=== PATIENT | female | born 1980 | race Caucasian/White ===

== ENCOUNTER 2017-05-06 12:20 | Inpatient (IN) | payer OTHER, SELFPAY ==
[2017-05-06 12:01] VITALS: BMI 30.7
[2017-05-06] MEDS: Lactated Ringers 1,000 ML 50 ML IV ×4 (12:54→22:57)
[2017-05-06 12:59] LABS: Hematocrit 40.5 % (37-47); Hemoglobin 13.8 g/dl (12.0-15.0); Mean Corp Hgb Conc 34.1 g/gl (32-36); Mean Corpuscular Hgb 30.9 pg (27.0-32.0); Mean Corpuscular Volume 90.6 fL (81-99); Mean Platelet Vol. 10.1 fl (6.2-12.0); Platelet Count 273 K/mm3 (150-450); RBC Distribution Width CV 13.2 % (11.6-14.6); RBC Distribution Width SD 43.4 fl (35.1-43.9); Red Blood Count 4.47 M/mm3 (4.2-5.4); Scan Indicated on CBC? Y/N NO; White Blood Count 16.6 K/mm3 (4.4-11.0)
[2017-05-06] MEDS: Nalbuphine 10 MG/ML Ampul IV ×2 (14:47→18:06)
--- NOTE | 2017-05-06 15:07 | PCM.HP.STD ---
Problem List (1) Active labor at term Status: Acute (2) Advanced maternal age (AMA) in Status: Acute Comment: negative NIPT screening (3) Positive GBS test Status: Acute Comment: clindamycin sensitive (4) Large for gestational age fetus affecting mother, antepartum, third trimester, single gestation Status: Chronic Comment: normal HgA1c History of Present Illness Date of Admission: 05/06/17 Chief Complaint: ial The patient is a 37 year old F @ 40 weeks presents IAL. she has had an uncomplicated labor doing well no complaints. Past Medical History Past Medical History (Chronic Problems): Chronic Problems (Last Reviewed 05/05/17 @ 08:20 by Yael Scott) Large for gestational age fetus affecting mother, antepartum, third trimester, single gestation (Chronic) normal HgA1c Allergies penicillin G Allergy (Mild, Verified 05/06/17 12:02) Unknown Home Medications: Ambulatory Orders Medication Instructions Recorded ceramides 1,3,6-11 topical cream 1 applic TOPICAL DAILY 03/28/17 1 tab PO QDAY 03/28/17 vitamin,calcium,[id number] acid tablet Surgical History: - - pedunculated myomectomy [employer] History: - - myomectomy Lives: Spouse/ Significant Other Smoking Status: Never smoker Tobacco Use: Non-smoker Alcohol: None Drugs: None Review of Systems Constitutional: Denies: Chills, Fever, Weight Change HEENT: Denies: Head Aches, Sinus Congestion, Sinus Drainage Cardiovascular: Denies: Chest Pain, Palpitations Respiratory: Denies: Cough, Shortness of breath at rest, Sputum production Gastrointestinal: Reports: Abdominal Pain. Denies: Nausea, Vomiting Genitourinary: Denies: Dysuria Musculoskeletal: Denies: Joint Pain, Joint Tenderness Skin: Denies: Rash, Wounds Neurological: Denies: Numbness, Tingling, Focal weakness Psychiatric: Denies: Anxiety, Depression, Homicidal Ideations, Suicidal Ideations Hematologic/ Lymphatic: Denies: Easy Bruising, Easy Bleeding VTE Information - Inpt Only VTE Present on Admission: No Patient Problems: Active and Suspected Problems (Last Reviewed 05/05/17 @ 08:20 by Yael Scott) Active labor at term (Acute) - Physical Exam General: Alert, Oriented x3 HEENT: EOMI Oral: Moist Mucosa Lungs: Normal air movement Cardiovascular: Regular rate Abdomen: Soft, Gravid, Appropriate for Gestational Age Skin: No rashes Weight: 190 lb 0.615 oz Body Mass Index (BMI) 30.7 Laboratory Tests Past 24 Hrs 05/06/17 05/06/17 12:40 12:40 WBC 16.6 H RBC 4.47 Hgb 13.8 Hct 40.5 MCV 90.6 MCH 30.9 MCHC 34.1 RDW 13.2 RDW Differential 43.4 Plt Count 273 MPV 10.1 Blood Type O POSITIVE Antibody Screen NEGATIVE Assessment/Plan Active and Suspected Problems (Last Reviewed 05/05/17 @ 08:20 by Yael Scott) Active labor at term (Acute) ial expectant manamgent, support and change positions, iv nubain and nitrous used in labor. gbs positive give clindamycin. ama and previous myomectomy but was pedunculated.
--- NOTE | 2017-05-06 15:17 | HP.PCM_ITS ---
Problem List (1) Active labor at term Status: Acute (2) Advanced maternal age (AMA) in Status: Acute Comment: negative NIPT screening (3) Positive GBS test Status: Acute Comment: clindamycin sensitive (4) Large for gestational age fetus affecting mother, antepartum, third trimester, single gestation Status: Chronic Comment: normal HgA1c History of Present Illness Date of Admission: 05/06/17 Chief Complaint: ial The patient is a 37 year old F @ 40 weeks presents IAL. she has had an uncomplicated labor doing well no complaints. Past Medical History Past Medical History (Chronic Problems): Chronic Problems (Last Reviewed 05/05/17 @ 08:20 by Yael Scott) Large for gestational age fetus affecting mother, antepartum, third trimester, single gestation (Chronic) normal HgA1c Allergies penicillin G Allergy (Mild, Verified 05/06/17 12:02) Unknown Home Medications: Ambulatory Orders Medication Instructions Recorded ceramides 1,3,6-11 topical cream 1 applic TOPICAL DAILY 03/28/17 1 tab PO QDAY 03/28/17 vitamin,calcium,qfvwtdxx-jrxt-totwf acid tablet Surgical History: - - pedunculated myomectomy [employer]ER History: - - myomectomy Lives: Spouse/ Significant Other Smoking Status: Never smoker Tobacco Use: Non-smoker Alcohol: None Drugs: None Review of Systems Constitutional: Denies: Chills, Fever, Weight Change HEENT: Denies: Head Aches, Sinus Congestion, Sinus Drainage Cardiovascular: Denies: Chest Pain, Palpitations Respiratory: Denies: Cough, Shortness of breath at rest, Sputum production Gastrointestinal: Reports: Abdominal Pain. Denies: Nausea, Vomiting Genitourinary: Denies: Dysuria Musculoskeletal: Denies: Joint Pain, Joint Tenderness Skin: Denies: Rash, Wounds Neurological: Denies: Numbness, Tingling, Focal weakness Psychiatric: Denies: Anxiety, Depression, Homicidal Ideations, Suicidal Ideations Hematologic/ Lymphatic: Denies: Easy Bruising, Easy Bleeding VTE Information - Inpt Only VTE Present on Admission: No Patient Problems: Active and Suspected Problems (Last Reviewed 05/05/17 @ 08:20 by Yael Scott) Active labor at term (Acute) - Physical Exam General: Alert, Oriented x3 HEENT: EOMI Oral: Moist Mucosa Lungs: Normal air movement Cardiovascular: Regular rate Abdomen: Soft, Gravid, Appropriate for Gestational Age Skin: No rashes Weight: 190 lb 0.615 oz Body Mass Index (BMI) 30.7 Laboratory Tests Past 24 Hrs 05/06/17 05/06/17 12:40 12:40 WBC 16.6 H RBC 4.47 Hgb 13.8 Hct 40.5 MCV 90.6 MCH 30.9 MCHC 34.1 RDW 13.2 RDW Differential 43.4 Plt Count 273 MPV 10.1 Blood Type O POSITIVE Antibody Screen NEGATIVE Assessment/Plan Active and Suspected Problems (Last Reviewed 05/05/17 @ 08:20 by Yael Scott) Active labor at term (Acute) ial expectant manamgent, support and change positions, iv nubain and nitrous used in labor. gbs positive give clindamycin. ama and previous myomectomy but was pedunculated.
[2017-05-06] MEDS: Clindamycin 900 MG/50 ML BAG 75 MG IV ×2 (15:34→22:37)
[2017-05-06] MEDS: Ondansetron 4 MG/2 ML Vial IV (18:10)
[2017-05-06] MEDS: 0.9% Saline Lock 10 ML Syringe IV (18:10)
[2017-05-06] MEDS: Oxytocin 30 units/NS 500 ml 30 UNITS/500 ML IV.SOLN IV (22:46)
[2017-05-07] VITALS (26 sets, daily range): BP systolic 57–132; BP diastolic 20–107; PULSE 106–137; RESP 15–28; TEMP 36.7–38.3; O2SAT 93–100
[2017-05-07] MEDS: Lactated Ringers 1,000 ML 50 ML IV ×2 (03:41→05:54)
--- NOTE | 2017-05-07 05:33 | PCM.PN.BLA ---
Progress Note pitocin augmentation of labor for minimal change- complete and pushing for an hour, overall reassuring FHT, occasional isolated variable but 130s moderate variability reactive. toco q2-4 minutes. patient painful in llq so redosed with epidural
[2017-05-07] MEDS: Clindamycin 900 MG/50 ML BAG 75 MG IV ×3 (07:18→21:48)
--- NOTE | 2017-05-07 07:53 | PCM.PN.BLA ---
Progress Note patient complete since 324 am pushing since 340 for 4 hours and still +1 station with severe caput and severe bilateral labial edema. s/p epidural redosing x 2 and position changes. recommend primary for arrest of descent. will take to back now, catyegory I tracing reassuring. isolated variable. patient consented for csection and agrees.
[2017-05-07] MEDS: Sodium Citrate/Citric Acid 30 ML UDC PO (07:56)
--- NOTE | 2017-05-07 07:58 | PCM.OPRPT ---
Problem List (1) Active labor at term Status: Acute (2) Advanced maternal age (AMA) in Status: Acute Comment: negative NIPT screening (3) Positive GBS test Status: Acute Comment: clindamycin sensitive (4) Large for gestational age fetus affecting mother, antepartum, third trimester, single gestation Status: Chronic Comment: normal HgA1c (5) Arrest of descent, delivered, current hospitalization Status: Acute Report of Operation Date of Procedure: 05/07/17 Pre-Operative Diagnosis: LGA, AMA, arrest of descent pushing for four hours +1 station, h/o laparoscopic serosal myomectomy Post-Operative Diagnosis: Same plus CPD Surgery/Procedure Performed:: primary low transverse csection Type of Anesthesia:: Epidural Special Medications: Disha Specimen's removed: Female in vertex presentation 8 lbs. 13 oz. Drains: Almaraz Estimated Blood Loss (mL): 1100 cc Fluids Replaced: Crystalloid Description of Procedure: Patient presented in active labor at 45 cm dilation and proceeded to 7 cm spontaneously developed arrest of labor and therefore was augmented with Pitocin and underwent epidural for anesthesia. Patient proceeded to complete dilation and began pushing. Patient pushed for 4 hours with minimal descent past 1-2+. Patient was then consented for a primary low transverse . Patient taken to the back and epidural anesthesia was not found to be adequate and therefore patient underwent general anesthesia.The patient was placed in the dorsal supine position with leftward tilt. Patient was prepped and draped in the normal sterile fashion. Pfannenstiel skin incision was made with the scalpel and carried through to the underlying layer of fascia with the scalpel. Fascia was nicked in the midline and the incision extended laterally. The rectus bellies were dissected off superiorly and inferiorly with out complication both sharply and bluntly. The peritoneum was entered digitally. Significant uterine serosal swelling and perivesical swelling was noted. the incision was stretched and a low transverse uterine incision was made with the scalpel. The infant's head was delivered atraumatically followed by the anterior and posterior shoulders without complication the rest of the infant delivered. The cord was clamped and cut and the infant was handed off to awaiting nurse. The placenta was delivered spontaneously immediately following and was noted to be intact and have a three-vessel cord. The uterus was exteriorized cleared of all clots and debris, and the incision was closed in a double layer closure using #1 Monocryl. The uterus was returned to the maternal abdomen and gutters were cleared of all clots and debris. The ovaries and fallopian tubes were noted to be within normal limits. Minimal serosal bleeding was noted on the right side of the incision which was remedied with application of Disha. The left upper part of the uterine incision was noted to have a small hematoma tracking under the serosa which was watched and noted to be stable. The peritoneum was closed with 3-0 Monocryl in a running fashion. Fascia was closed with 0 PDS in a running fashion. Subcutaneous tissue was copiously irrigated and the skin was closed with 3-0 Monocryl in a subcuticular fashion. Steri-Strips and Mepilex dressing were applied without complication. Patient was taken to recovery in stable condition. - Complications None
[2017-05-07] MEDS: Oxytocin 30 units/NS 500 ml 30 UNITS/500 ML IV.SOLN 167 UNITS IV (08:30)
[2017-05-07] MEDS: Methylergonovine 0.2 MG/ML Ampul IM (10:20)
[2017-05-07 10:22] LABS: Absolute Lymphocyte Count 1.44 X10^3/ul (0.83-4.51); Absolute Neutrophil Count 22.2 X10^3/uL (2.0-7.7); Basophil# 0.01 X10^3/uL; Eosinophil# 0.01 X10^3/uL; Hematocrit 23.5 % (37-47); Lymphocyte # 1.44 X10^3/ul (4.0); Lymphocyte % 5.8 % (19-41); Mean Corpuscular Hgb 31.4 pg (27.0-32.0); Mean Corpuscular Volume 92.2 fL (81-99); Mean Platelet Vol. 10.2 fl (6.2-12.0); Monocyte# 1.02 X10^3/uL; Monocyte% 4.1 % (0-10); Neutrophil # 22.22 X10^3/uL (2.7-7.7); Neutrophil % 89.5 % (47-70); Platelet Count 235 K/mm3 (150-450); RBC Distribution Width CV 12.9 % (11.6-14.6); RBC Distribution Width SD 41.8 fl (35.1-43.9); Red Blood Count 2.55 M/mm3 (4.2-5.4); White Blood Count 24.8 K/mm3 (4.4-11.0)
[2017-05-07 10:24] LABS: Differential Indicated SCAN CRITERIA MET; POSITIVE COUNT NO; POSITIVE DIFFERENTIAL YES; POSITIVE MORPHOLOGY NO
[2017-05-07] MEDS: Carboprost Tromethamine 250 MCG/ML Ampul IM ×4 (10:28→11:29)
[2017-05-07 10:29] LABS: International Normalized Ratio 1.1; Prothrombin Time (Protime)PT. 14.1 SECONDS (11.7-14.9)
[2017-05-07] MEDS: miSOPROStol 200 MCG Tablet 1000 MCG RECTAL (10:31)
[2017-05-07] MEDS: Lactated Ringers 1,000 ML 999 ML IV ×2 (10:36→20:54)
[2017-05-07 11:18] LABS: Fibrinogen 375 mg/dl (203-444)
[2017-05-07 11:40] LABS: Absolute Neutrophil Count 16.6 X10^3/uL (2.0-7.7); Basophil# 0.01 X10^3/uL; Eosinophil# 0.01 X10^3/uL; Hematocrit 26.7 % (37-47); Hemoglobin 8.9 g/dl (12.0-15.0); Lymphocyte % 10.1 % (19-41); Mean Corp Hgb Conc 33.3 g/gl (32-36); Mean Corpuscular Hgb 31.3 pg (27.0-32.0); Mean Platelet Vol. 9.7 fl (6.2-12.0); Monocyte% 9.1 % (0-10); Neutrophil # 16.63 X10^3/uL (2.7-7.7); Neutrophil % 79.9 % (47-70); Platelet Count 136 K/mm3 (150-450); RBC Distribution Width CV 14.2 % (11.6-14.6); RBC Distribution Width SD 48.6 fl (35.1-43.9); Red Blood Count 2.84 M/mm3 (4.2-5.4); White Blood Count 20.8 K/mm3 (4.4-11.0)
[2017-05-07 11:42] LABS: Differential Indicated SCAN CRITERIA MET; POSITIVE COUNT NO; POSITIVE DIFFERENTIAL YES; POSITIVE MORPHOLOGY YES
[2017-05-07 11:47] LABS: International Normalized Ratio 1.3; Prothrombin Time (Protime)PT. 15.5 SECONDS (11.7-14.9)
[2017-05-07 11:48] LABS: Fibrinogen 250 mg/dl (203-444); Partial Thromboplast Time 31.3 Seconds (24.1-36.2)
--- NOTE | 2017-05-07 13:05 | NURSING ---
During patient recovery at 1000 BP was 57/20. Fundus 3/U, to the right and firm. Lochia scant. Patient groggy but oriented. Lowered HOB. Called for additional staff. Charge nurse, Dr Davison and anesthesia called to evaluate. Pulse ox 98%. 1002 BP 51/24, 1008-Yesenia Floyd CRNA at bedside, LR rate increased to 999 1010-Second IV inserted, Nasal cannula applied at 5L 1011- BP 72/37. Hemorrhage cart, ultrasound, and additional staff in room. Andi Kimbrough RN (charge), Carolyn Mckeon RN, Ariana Burk, Tamra Van, Sheila Norris and Chucho Moreno at bedside. 1012-Dr Davison u/s performed and found clots in uterus. 1013-BP 89/41 1015-BP 82/35. pulse 121 1016-Dr Davison performed vaginal exam, large amount of clots expressed manually. Verbal order from Dr Davison for type and cross for 2 units of blood 1020-methergine given IM in right leg per Tamra Van 1021-BP 94/35, Dr Davison continued removing clots manually and with Banjo. 1028-Dr Davison u/s and saw clots were removed, Hemabate given 1031-cytotec 1000mcg given rectally. Pads weighed 1682 grams. Blood loss noted 1038-new bag of LR hung, running in left IV site. Running at 999cc/hr. Patient to be transferred to OR. 1040-Entered OR, Dr Davison present at bedside. Additional staff continued in OR as listed above. 1045-Hemabate given 1046-Hespan given per anesthesia Liv Floyd CRNA. Infusing into right IV site. 1049-vaginal exam per Dr Davison, more clots expressed, bleeding continued 1050-Bakri balloon placed-420cc of saline inserted in balloon 1059-[employer] called, Anesthesiologist called to attend, Dr Hernandez called to assist for possible hysterectomy 1102-Dr Dubon and Dr Hernandez at beside 1104-1st unit of blood started by Dr Dubon via rapid infuser. Done at 1113, supervisor picking crew called surgery staff in for possible hysterectomy 1110-Patient intubated per Dr Dubon, general anesthesia given 1112-Hemabate IM given per Andi Clancy 1114-2nd unit of blood started per Dr Dubon via rapid infuser and done at 1123 1120-5units of pitocin in LR given via anesthesia 1129-Hemabate IM given 1131-repeat labs drawn by Sheila Norris RN, Dr Davison made decision to transfer patient to ICU. Pads from OR weighed 696 grams. Total blood loss 3478cc. 1144-Hgb 8.9, Dr Davison aware 1200-Dr Davison ordered 3rd unit of blood 1220-report called to ICU by Sheila Norris RN 1225-BP 110/70 1226-Out of the OR to ICU
--- NOTE | 2017-05-07 13:24 | PN.OBGYN_ITS ---
Patient Problems: Active and Suspected Problems (Last Updated 05/07/17 @ 05:33 by Carleen Davison MD) Arrest of descent, delivered, current hospitalization (Acute) Anemia due to acute blood loss (Acute) hemorrhage (Acute) atony of uterus with hemorrhage (Acute) Postcesarean section (Acute) Subjective: Called to patient's bedside due to hypotension and tachycardia and increased fundal height. At time of evaluation minimal vaginal bleeding was noted, bedside ultrasound was performed fundal height was noted to be 25-26 cm, bedside ultrasound showed a 6 cm blood clot present inside the uterus and vaginal exam was performed and large amounts of blood clot were noted to be vaginal and intrauterine which were causing uterine atony and increased fundal height. Clots were evacuated and fundal massage was performed but significant blood loss was apparent and therefore labs were drawn, units of blood were requested for transfusion and patient was then taken to the back after not being able to adequately evacuate clots at the bedside due to comfort and noted increased bleeding. Due to discomfort patient was put under general anesthesia for evaluation and a bakri balloon was placed. patient stable and transferred to icu - Physical Exam General: Alert, Oriented x3 Oral: Dry Mucosa Cardiovascular: Tachycardic Abdomen: - - appropriate TTP, FH 22cm Vital Signs Temp Pulse Resp BP Pulse Ox 100.5 F H 133 H 28 H 113/57 L 100 05/07/17 12:37 05/07/17 12:37 05/07/17 12:37 05/07/17 12:37 05/07/17 12:37 Oxygen Flow Rate 2 Oxygen Delivery Method Nasal Cannula Weight: 190 lb 0.615 oz Body Mass Index (BMI) 30.7 Intake and Output for Last 24 Hours 05/05/17 05/06/17 05/07/17 23:59 23:59 23:59 Intake Total 1724 / 1724 4550 / 4550 Output Total 200 / 200 400 / 400 Balance 1524 / 1524 4150 / 4150 Laboratory Tests Past 24 Hrs 05/06/17 05/06/17 05/07/17 12:40 12:40 10:10 WBC 24.8 H RBC 2.55 L Hgb 8.0 L Hct 23.5 L MCV 92.2 MCH 31.4 MCHC 34.0 RDW 12.9 RDW Differential 41.8 Plt Count 235 MPV 10.2 Immature Gran % (Auto) 0.600 Neut % (Auto) 89.5 H Lymph % (Auto) 5.8 L Vermillion % (Auto) 4.1 Eos % (Auto) 0.0 Baso % (Auto) 0.0 Absolute Neuts (auto) 22.2 H Absolute Lymphs (auto) 1.44 Total Counted Not Reportable Diff Path Review PT INR APTT Fibrinogen Blood Type O POSITIVE Antibody Screen NEGATIVE Crossmatch See Detail 05/07/17 05/07/17 05/07/17 10:10 11:31 11:31 WBC 20.8 H RBC 2.84 L Hgb 8.9 L Hct 26.7 L MCV 94.0 MCH 31.3 MCHC 33.3 RDW 14.2 RDW Differential 48.6 H Plt Count 136 L MPV 9.7 Immature Gran % (Auto) 0.900 Neut % (Auto) 79.9 H Lymph % (Auto) 10.1 L Vermillion % (Auto) 9.1 Eos % (Auto) 0.0 Baso % (Auto) 0.0 Absolute Neuts (auto) 16.6 H Absolute Lymphs (auto) 2.10 Total Counted Not Reportable Diff Path Review May foll PT 14.1 15.5 H INR 1.1 1.3 APTT 29.0 31.3 Fibrinogen 375 250 Blood Type Antibody Screen Crossmatch Assessment/Plan Active and Suspected Problems (Last Updated 05/07/17 @ 05:33 by Carleen Davison MD) Arrest of descent, delivered, current hospitalization (Acute) Anemia due to acute blood loss (Acute) hemorrhage (Acute) atony of uterus with hemorrhage (Acute) Postcesarean section (Acute) patient underwent pelvic exam under anesthesia and management of PPH due to atony, s/p 2 units PRBCs now on 3rd unit, monitor in ICU. discussed with ICU attending. critical care monitoring for time being. Tachycardia at present, additional unit on hold for transfusion PRN, check cbc and coag panel 2 hours after transfusion bakri balloon in place- to remain in place 24 hours, continue clindamycin while in place, already s/p one dose gentamicin post care planning - will pump until out of ICU
--- NOTE | 2017-05-07 13:40 | PCM.OPRPT ---
Problem List (1) Active labor at term Status: Acute (2) Advanced maternal age (AMA) in Status: Acute Comment: negative NIPT screening (3) Positive GBS test Status: Acute Comment: clindamycin sensitive (4) Large for gestational age fetus affecting mother, antepartum, third trimester, single gestation Status: Chronic Comment: normal HgA1c (5) Arrest of descent, delivered, current hospitalization Status: Acute Report of Operation Date of Procedure: 05/07/17 Pre-Operative Diagnosis: LGA, AMA, arrest of descent pushing for four hours +1 station, h/o laparoscopic serosal myomectomy Post-Operative Diagnosis: Same plus CPD Surgery/Procedure Performed:: primary low transverse csection Type of Anesthesia:: Epidural Special Medications: Disha Specimen's removed: Female in vertex presentation 8 lbs. 13 oz. Drains: Almaraz Estimated Blood Loss (mL): 1100 cc Fluids Replaced: Crystalloid
--- NOTE | 2017-05-07 13:43 | PCM.OPRPT ---
Problem List (1) Active labor at term Status: Acute (2) Advanced maternal age (AMA) in Status: Acute Comment: negative NIPT screening (3) Positive GBS test Status: Acute Comment: clindamycin sensitive (4) Large for gestational age fetus affecting mother, antepartum, third trimester, single gestation Status: Chronic Comment: normal HgA1c (5) Arrest of descent, delivered, current hospitalization Status: Acute (6) Anemia due to acute blood loss Status: Acute (7) Postcesarean section Status: Acute (8) atony of uterus with hemorrhage Status: Acute (9) hemorrhage Status: Acute Report of Operation Date of Procedure: 05/07/17 Pre-Operative Diagnosis: hemorrhage secondary to uterine atony, acute blood loss severe anemia Post-Operative Diagnosis: Same plus CPD Surgery/Procedure Performed:: Pelvic exam under anesthesia Description of Surgical Findings:: Pending uterine atony and large blood clots Type of Anesthesia:: General Special Medications: Hespan and 2 units of blood products PRBCs Specimen's removed: Clot Drains: Almaraz Estimated Blood Loss (mL): 2400 cc Fluids Replaced: Crystalloid Description of Procedure: Approximately 1 hour post patient developed hypotension and tachycardia with increased fundal height and was found to have significant uterine atony with hemorrhage. At the bedside clots were evacuated and then patient was taken to the back and put under general anesthesia for pelvic exam under anesthesia. Ultrasound guidance was also performed and clots were removed and a barky balloon was placed and 420 cc of fluid were instilled into the balloon and fundal massage was employed until bleeding finally slowed. Patient became hemodynamically stable with persistent tachycardia but normal blood pressures and minimal vaginal bleeding. The patient was stabilized and bleeding under control patient was awoken and then transferred to the ICU. Grafts/Implants Used: Bakri balloon - Complications hemorrhage
[2017-05-07 15:40] LABS: Absolute Lymphocyte Count 1.72 X10^3/ul (0.83-4.51); Absolute Neutrophil Count 15.8 X10^3/uL (2.0-7.7); Basophil# 0.01 X10^3/uL; Basophil% 0.1 % (0-1); Differential Indicated SCAN CRITERIA MET; Hematocrit 23.8 % (37-47); Hemoglobin 8.2 g/dl (12.0-15.0); Lymphocyte # 1.72 X10^3/ul (4.0); Lymphocyte % 9.2 % (19-41); Mean Corp Hgb Conc 34.5 g/gl (32-36); Mean Corpuscular Hgb 31.1 pg (27.0-32.0); Mean Corpuscular Volume 90.2 fL (81-99); Mean Platelet Vol. 9.9 fl (6.2-12.0); Monocyte# 1.08 X10^3/uL; Monocyte% 5.8 % (0-10); Neutrophil # 15.79 X10^3/uL (2.7-7.7); Neutrophil % 84.4 % (47-70); POSITIVE COUNT NO; POSITIVE DIFFERENTIAL NO; POSITIVE MORPHOLOGY YES; Platelet Count 123 K/mm3 (150-450); RBC Distribution Width CV 14.2 % (11.6-14.6); RBC Distribution Width SD 46.5 fl (35.1-43.9); Red Blood Count 2.64 M/mm3 (4.2-5.4); White Blood Count 18.7 K/mm3 (4.4-11.0)
[2017-05-07 15:47] LABS: Fibrinogen 273 mg/dl (203-444); International Normalized Ratio 1.3; Partial Thromboplast Time 31.5 Seconds (24.1-36.2); Prothrombin Time (Protime)PT. 15.3 SECONDS (11.7-14.9)
[2017-05-07 15:54] LABS: ALB/GLOB Ratio 0.6 RATIO (0.9-2.4); AST(SGOT) 40 U/L (15-37); Alanine Aminotransfer ALT/SGPT 14 U/L (12-78); Albumin, Serum 1.3 g/dL (3.4-5.0); Alkaline Phosphatase 66 U/L (45-117); Anion Gap 10 (5-15); BUN 16 mg/dL (7-18); BUN/Creat Ratio 17.4 RATIO (10-20); Calcium,Total 6.7 mg/dL (8.5-10.1); Chloride 109 mmol/L (98-107); Creatinine, Serum 0.92 mg/dL (0.55-1.02); EST Glomerular Filtration Rate 73 mL/min (>60); Est Glom Filt Rate - Afr Amer 88 mL/min (>60); Estimated Creatinine Clearance 78.38 ml/min; Glucose 99 mg/dL (70-110); Potassium 4.1 mmol/L (3.5-5.1); Protein, Total 3.3 g/dL (6.4-8.2); Sodium Level 139 mmol/L (136-145)
[2017-05-07 16:02] LABS: Differential Comment SCANNED
--- NOTE | 2017-05-07 18:18 | NURSING ---
instructed on use and care of breast pump.
[2017-05-07] MEDS: Acetaminophen 500 MG Tablet 1000 MG PO (18:40)
[2017-05-07 20:10] LABS: Hematocrit 22.4 % (37-47); Hemoglobin 7.7 g/dl (12.0-15.0)
--- NOTE | 2017-05-07 20:53 | NURSING ---
OB nurses here to change pad and check abdomen; assist pt with breast pumping
--- NOTE | 2017-05-07 21:04 | NURSING ---
Pericare and pad change. pt tolerated well, RN assisted pt to set up breast-pump. FOB and bedside and supportive
[2017-05-07] MEDS: Lactated Ringers 1,000 ML 125 ML IV (23:06)
[2017-05-08] VITALS (29 sets, daily range): BP systolic 98–128; BP diastolic 43–79; PULSE 106–145; RESP 15–22; TEMP 37.2–38.2; O2SAT 94–99
--- NOTE | 2017-05-08 00:29 | NURSING ---
ob nurses here do to check; discussed clot noted in tubing of balloon and abdomen is distended and slightly bigger than earlier.
[2017-05-08] MEDS: Methylergonovine 0.2 MG/ML Ampul IM (00:39)
--- NOTE | 2017-05-08 00:40 | NURSING ---
ob nurses disconnected drainage tubing and flushed it with 70 ml of NS. MD arrived to room.
--- NOTE | 2017-05-08 00:52 | CT_ITS ---
STUDY: CT ABDOMEN AND PELVIS WITHOUT CONTRAST REASON FOR EXAM: Female, 37 years old. Status post with hemorrhage RADIATION DOSAGE (If Supplied By Facility): CTDIvol = ( 10.42 ) mGy, DLP = ( 722.42 ) mGycm TECHNIQUE: Transaxial images were obtained from the dome of the diaphragm to the symphysis pubis without oral contrast, and without intravenous contrast. Sagittal and coronal images were reconstructed. Individualized dose optimization techniques were used for this CT. COMPARISON: None. FINDINGS: Left pleural effusion. The visualized portions of the heart are within normal limits. The liver was incompletely imaged. Normal gallbladder and extrahepatic biliary system. Normal spleen. Normal pancreas. Normal bilateral adrenal glands. Bilateral symmetric mild hydroureteronephrosis is present. Normal visualized stomach. Normal small intestine. Normal colon. The appendix is visualized and appears normal. Normal abdominal aorta. Normal inferior vena cava. Normal retroperitoneum. Almaraz catheter in the bladder. Enlarged, uterus. Uterine rodriguez are dense which may be related to hyperemia. Blood and air is present in the endometrial cavity compatible with recent . Blood is also present in the cervix. An acute hematoma is suggested in the right pelvis adjacent to the uterus and cervix on image 123 of series 2, measuring approximately 4 cm. Acute blood products also extend upwards from the right pelvis into the right lower quadrant, as seen on image 107 of series 2. Small amount of blood products are present along the inferior edge of the liver. Postoperative air is present in the anterior abdominal wall. Air is present in the central spinal canal likely related to previous epidural catheter placement. CT/Abdomen/Pelvis without Cont IMPRESSION: uterus with residual blood and air in the endometrial cavity and blood in the cervix. 4 cm acute hematoma in the right pelvis adjacent to the uterus. Acute blood also tracks superiorly from the pelvis into the right lower quadrant. A small amount of blood is also seen along the edge of the liver. Bilateral symmetric hydroureteronephrosis. N.B. : The above information has been verbally conveyed by Adriel Meyers MD to Yesenia Escobar [facility]- In-Patient RN, on 05/08/2017 02:31:05 (ET). Electronically Signed: Adriel Meyers MD at 2:29 EST Tel , Service support , N.B. : The above information has been verbally conveyed by Adriel Meyers MD to Yesenia Escobar [facility]- In-Patient RN, on 05/08/2017 02:31:05 (ET).
--- NOTE | 2017-05-08 01:21 | NURSING ---
Saman here to see patient. performed ultrasound and decided to take patient to CT of abd and pelvis. discussed with this nurse importance of not touching the stopcock connected to the patient's tubing. however whenever OB nurses were here at 2049 on 05/07 the OB nurse handed this RN a stopcock that they stated was found under her left leg.
[2017-05-08] MEDS: Acetaminophen 500 MG Tablet 1000 MG PO ×3 (01:42→18:34)
--- NOTE | 2017-05-08 01:47 | NURSING ---
0015 RN in room for fundal check. fundus noted to be one fingerbreadth above umbilicus where as previous check fundus was at umbilicus. pt reports increased abd tenderness upon palpation and abd more distended from prior check. small amts of rubra lochia noted to peripad. small clot noted in díaz tubing which was connected to the balloon tamponade. Díaz tubing was disconnected and clot was able to be poured out of díaz tubing. díaz cath tubing was then reconnected to the balloon tamponade tubing 0020 This RN called for pt update. Physician updated on increased abd tenderness, distention, fundus now one fingerbreadth above umbilicus when was at umbilicus with the previous exam. New orders received to flush balloon tamponade tubing with 50 cc of normal saline PRN, give a x1 dose of IM methergine and to insert finger into vagina to see if there is any vaginal bleeding or clots 0030 This RN inserted one finger into vagina. no clots felt, as RN removed finger scant amts of rubra lochia noted to glove. 0037 Díaz cath tubing disconnected from balloon tamponade tubing. balloon tamponade tubing was flushed with 50cc of NS by Kamlesh KANG, flushed easily, 24 cc of blood tinged drainage returned into syringe after flush 0039 IM methergine given to right thigh 0040 at bedside, assessed pt 0046 bedside ultrasound completed by and physician completed a vaginal exam. upon vaginal exam tamponade balloon noted to be deflated and was removed. This RN notified physician when RN assessed fundus around 1999 a stop cock was found under pts right thigh and pt reported feeling as she has been laying on it for a while, no wetness was noted under pt as RN changed peripad and green pads on bed. Physician ordered an abd and pelvis CT. approved for pt to stop in [facility] to see baby on way to CT. 0103 pt [facility] and [facility] by this RN. Kamlesh KANG and prepress technician 0106 pt in [facility], holding baby, pt reporting rectal pressure. on unit and made aware 0110 Pt being transported to CT via bed by this RN, Kamlesh RN and 013 back to ICU room 1, present 0135 fundal check completed by this RN. fundus remains firm, midline and one fingerbreadth above umbilicus. scant amts of rubra lochia noted to peripad. pericare and pad changed. Orders received to complete fundal check Q1 hour for next 4 hours then resume fundal checks Q4 hours.
--- NOTE | 2017-05-08 01:57 | PCM.PN.OB ---
Patient Problems: Active and Suspected Problems (Last Reviewed 05/05/17 @ 08:20 by Yael Scott) Postcesarean section (Acute) Arrest of descent, delivered, current hospitalization (Acute) Anemia due to acute blood loss (Acute) hemorrhage (Acute) atony of uterus with hemorrhage (Acute) Subjective: called due to increased abdominal distension- patient examined and moderate distension soft tender, us done and balloon not seen intrauterine. minimal output vaginally, vaginal exam done and bakri balloon found deflated in vagina. upon talking with patient and staff, no one had removed stopcock, it was felt free in the bed and thrown away at 8 pm, but at that time staff was unaware that the stopcock had been from the bakri balloon. Upon asking the patient- she doesn't remember feeling anything wet or draining. No staff member had removed the stopcock so it is felt that there was a malfunction of the device and it spontaneously came off at an unknown time. stat ct scan done due to abdominal distension and currently awaiting results but upon image review it looks like distended air filled bowel loops that are causing the distension. minimal vaginal bleeding and clot present in the lining. - Physical Exam General: Alert, Oriented x3 Lungs: Normal air movement Cardiovascular: Tachycardic Abdomen: Soft, Hypoactive Bowel Sounds, Distended, - - incision c/d/i Extremities: Edema Vital Signs Temp Pulse Resp BP Pulse Ox 99 F 116 H 18 98/43 L 95 05/08/17 01:19 05/08/17 01:19 05/08/17 01:19 05/08/17 01:19 05/08/17 01:19 Oxygen Flow Rate 2 Oxygen Delivery Method Room Air Weight: 190 lb 0.615 oz Body Mass Index (BMI) 30.7 Intake and Output for Last 24 Hours 05/06/17 05/07/17 05/08/17 23:59 23:59 23:59 Intake Total 1724 / 1724 5850 / 5850 2150 / 2150 Output Total 200 / 200 750 / 750 570 / 570 Balance 1524 / 1524 5100 / 5100 1580 / 1580 Laboratory Tests Past 24 Hrs 05/06/17 05/07/17 05/07/17 12:40 10:10 10:10 WBC 24.8 H RBC 2.55 L Hgb 8.0 L Hct 23.5 L MCV 92.2 MCH 31.4 MCHC 34.0 RDW 12.9 RDW Differential 41.8 Plt Count 235 MPV 10.2 Immature Gran % (Auto) 0.600 Neut % (Auto) 89.5 H Lymph % (Auto) 5.8 L [place] % (Auto) 4.1 Eos % (Auto) 0.0 Baso % (Auto) 0.0 Absolute Neuts (auto) 22.2 H Absolute Lymphs (auto) 1.44 Total Counted Not Reportable Differential Comment Diff Path Review PT 14.1 INR 1.1 APTT 29.0 Fibrinogen 375 Sodium Potassium Chloride Carbon Dioxide Anion Gap BUN Creatinine Estim Creat Clear Calc Est GFR (MDRD) Af Amer Est GFR (MDRD) Non-Af BUN/Creatinine Ratio Glucose Calcium Total Bilirubin AST ALT Alkaline Phosphatase Total Protein Albumin Globulin Albumin/Globulin Ratio Crossmatch See Detail 05/07/17 05/07/17 05/07/17 11:31 11:31 15:25 WBC 20.8 H RBC 2.84 L Hgb 8.9 L Hct 26.7 L MCV 94.0 MCH 31.3 MCHC 33.3 RDW 14.2 RDW Differential 48.6 H Plt Count 136 L MPV 9.7 Immature Gran % (Auto) 0.900 Neut % (Auto) 79.9 H Lymph % (Auto) 10.1 L [place] % (Auto) 9.1 Eos % (Auto) 0.0 Baso % (Auto) 0.0 Absolute Neuts (auto) 16.6 H Absolute Lymphs (auto) 2.10 Total Counted Not Reportable Differential Comment Diff Path Review May foll PT 15.5 H INR 1.3 APTT 31.3 Fibrinogen 250 Sodium 139 Potassium 4.1 Chloride 109 H Carbon Dioxide 20.0 L Anion Gap 10 BUN 16 Creatinine 0.92 Estim Creat Clear Calc 78.38 Est GFR (MDRD) Af Amer 88 Est GFR (MDRD) Non-Af 73 BUN/Creatinine Ratio 17.4 Glucose 99 Calcium 6.7 L Total Bilirubin 0.70 AST 40 H ALT 14 Alkaline Phosphatase 66 Total Protein 3.3 L Albumin 1.3 L Globulin 2.0 L Albumin/Globulin Ratio 0.6 L Crossmatch 05/07/17 05/07/17 05/07/17 15:25 15:25 20:00 WBC 18.7 H RBC 2.64 L Hgb 8.2 L 7.7 L Hct 23.8 L 22.4 L MCV 90.2 MCH 31.1 MCHC 34.5 RDW 14.2 RDW Differential 46.5 H Plt Count 123 L MPV 9.9 Immature Gran % (Auto) 0.500 Neut % (Auto) 84.4 H Lymph % (Auto) 9.2 L [place] % (Auto) 5.8 Eos % (Auto) 0.0 Baso % (Auto) 0.1 Absolute Neuts (auto) 15.8 H Absolute Lymphs (auto) 1.72 Total Counted Not Reportable Differential Comment SCANNED Diff Path Review PT 15.3 H INR 1.3 APTT 31.5 Fibrinogen 273 Sodium Potassium Chloride Carbon Dioxide Anion Gap BUN Creatinine Estim Creat Clear Calc Est GFR (MDRD) Af Amer Est GFR (MDRD) Non-Af BUN/Creatinine Ratio Glucose Calcium Total Bilirubin AST ALT Alkaline Phosphatase Total Protein Albumin Globulin Albumin/Globulin Ratio Crossmatch Assessment/Plan Active and Suspected Problems (Last Reviewed 05/05/17 @ 08:20 by Yael Scott) Postcesarean section (Acute) Arrest of descent, delivered, current hospitalization (Acute) Anemia due to acute blood loss (Acute) hemorrhage (Acute) atony of uterus with hemorrhage (Acute) anemia secondary to acute blood loss, hypotension, PPH due to atony, s/p 4 units PRBCs- checking Hg 1 hour post transfusion. await ct scan results bakri balloon out, vaginal bleeding stable post care planning - will pump until out of ICU
--- NOTE | 2017-05-08 02:37 | PCM.PN.BLA ---
Progress Note called and spoke to nurse about ct scan results- finding of 4 cm hematoma is likely confounded by bronson that was placed in that same area postoperatively, recommend following with expectant management for now and await repeat blood counts.
[2017-05-08] MEDS: Lactated Ringers 500 ML 999 ML IV (02:39)
--- NOTE | 2017-05-08 02:54 | NURSING ---
this RN up to ICU for fundal check. fundal check unchanged from last assessment. pt reports some improvement in abd tenderness upon palpation. pericare and peripad change. Ice pack applied to perineum for comfort. RN assisted to set up breastpump for pt. 0255 in WP, verbally notified of fundal check unchanged from previous assessment-no new orders received
--- NOTE | 2017-05-08 03:05 | NURSING ---
assisted patient with pumping breast milk
[2017-05-08 03:12] LABS: Hematocrit 23.6 % (37-47); Hemoglobin 8.2 g/dl (12.0-15.0)
--- NOTE | 2017-05-08 03:23 | NURSING ---
bakri balloon removed when Dr. Davison was on unit at 0100.
--- NOTE | 2017-05-08 03:30 | NURSING ---
fundal check remains unchanged from previous assessment. pericare, pad and ice pack changed. KPAD applied to abd for comfort, breast milk swabs taken to for baby
[2017-05-08 04:21] LABS: Anion Gap 9 (5-15); BUN 15 mg/dL (7-18); BUN/Creat Ratio 20.5 RATIO (10-20); Calcium,Total 7.2 mg/dL (8.5-10.1); Chloride 110 mmol/L (98-107); Creatinine, Serum 0.73 mg/dL (0.55-1.02); EST Glomerular Filtration Rate 95 mL/min (>60); Est Glom Filt Rate - Afr Amer 115 mL/min (>60); Estimated Creatinine Clearance 98.78 ml/min; Glucose 81 mg/dL (70-110); Sodium Level 141 mmol/L (136-145)
[2017-05-08] MEDS: Clindamycin 900 MG/50 ML BAG 75 MG IV ×3 (05:49→19:37)
[2017-05-08] MEDS: Lactated Ringers 1,000 ML 125 ML IV (05:49)
[2017-05-08 06:49] LABS: Hematocrit 23.3 % (37-47); Mean Corp Hgb Conc 34.3 g/gl (32-36); Mean Corpuscular Hgb 30.9 pg (27.0-32.0); Mean Platelet Vol. 9.9 fl (6.2-12.0); Platelet Count 115 K/mm3 (150-450); RBC Distribution Width CV 14.4 % (11.6-14.6); RBC Distribution Width SD 47.3 fl (35.1-43.9); Red Blood Count 2.59 M/mm3 (4.2-5.4); White Blood Count 16.6 K/mm3 (4.4-11.0)
[2017-05-08 06:53] LABS: Scan Indicated on CBC? Y/N NO
[2017-05-08] MEDS: Lactated Ringers 1,000 ML 999 ML IV ×3 (08:52→18:45)
[2017-05-08] MEDS: DiphenhydrAMINE 25 MG Capsule 50 MG PO (09:12)
--- NOTE | 2017-05-08 09:45 | NURSING ---
WP clinical application specialistCarina and this RN to room to help pt to chair per Dr Davison requests. Pt tolerated well without any lightheadedness or dizziness. SCDs placed back on pt. Assisted with pumping.
[2017-05-08] MEDS: oxyCODONE 5 MG Tablet PO ×4 (09:51→22:43)
--- NOTE | 2017-05-08 11:16 | PCM.PN.OB ---
Patient Problems: Active and Suspected Problems (Last Reviewed 05/05/17 @ 08:20 by Yael Scott) Postcesarean section (Acute) Arrest of descent, delivered, current hospitalization (Acute) Anemia due to acute blood loss (Acute) hemorrhage (Acute) atony of uterus with hemorrhage (Acute) Subjective: patient stable since last evaluation- no increased distension, pain controlled, still tachycardic but significant urinary diuresis, feeling hungry. no cp sob n v. bleeding minimal. - Physical Exam General: Alert, Oriented x3 Lungs: Normal air movement Cardiovascular: Tachycardic Abdomen: Hypoactive Bowel Sounds, - - stable distension, tender ot palpation Vital Signs Temp Pulse Resp BP Pulse Ox 98.9 F 127 H 20 H 107/61 97 05/08/17 10:37 05/08/17 10:37 05/08/17 10:37 05/08/17 10:37 05/08/17 10:37 Oxygen Flow Rate 2 Oxygen Delivery Method Room Air Weight: 202 lb 2.622 oz Body Mass Index (BMI) 30.7 Intake and Output for Last 24 Hours 05/06/17 05/07/17 05/08/17 23:59 23:59 23:59 Intake Total 1724 / 1724 8650 / 8650 3094 / 3094 Output Total 200 / 200 1850 / 1850 2370 / 2370 Balance 1524 / 1524 6800 / 6800 724 / 724 Laboratory Tests Past 24 Hrs 05/06/17 05/07/17 05/07/17 12:40 10:10 11:31 WBC 20.8 H RBC 2.84 L Hgb 8.9 L Hct 26.7 L MCV 94.0 MCH 31.3 MCHC 33.3 RDW 14.2 RDW Differential 48.6 H Plt Count 136 L MPV 9.7 Immature Gran % (Auto) 0.900 Neut % (Auto) 79.9 H Lymph % (Auto) 10.1 L [place] % (Auto) 9.1 Eos % (Auto) 0.0 Baso % (Auto) 0.0 Absolute Neuts (auto) 16.6 H Absolute Lymphs (auto) 2.10 Total Counted Not Reportable Differential Comment Diff Path Review May foll PT INR APTT Fibrinogen 375 Sodium Potassium Chloride Carbon Dioxide Anion Gap BUN Creatinine Estim Creat Clear Calc Est GFR (MDRD) Af Amer Est GFR (MDRD) Non-Af BUN/Creatinine Ratio Glucose Calcium Total Bilirubin AST ALT Alkaline Phosphatase Total Protein Albumin Globulin Albumin/Globulin Ratio Crossmatch See Detail 05/07/17 05/07/17 05/07/17 11:31 15:25 15:25 WBC RBC Hgb Hct MCV MCH MCHC RDW RDW Differential Plt Count MPV Immature Gran % (Auto) Neut % (Auto) Lymph % (Auto) [place] % (Auto) Eos % (Auto) Baso % (Auto) Absolute Neuts (auto) Absolute Lymphs (auto) Total Counted Differential Comment Diff Path Review PT 15.5 H 15.3 H INR 1.3 1.3 APTT 31.3 31.5 Fibrinogen 250 273 Sodium 139 Potassium 4.1 Chloride 109 H Carbon Dioxide 20.0 L Anion Gap 10 BUN 16 Creatinine 0.92 Estim Creat Clear Calc 78.38 Est GFR (MDRD) Af Amer 88 Est GFR (MDRD) Non-Af 73 BUN/Creatinine Ratio 17.4 Glucose 99 Calcium 6.7 L Total Bilirubin 0.70 AST 40 H ALT 14 Alkaline Phosphatase 66 Total Protein 3.3 L Albumin 1.3 L Globulin 2.0 L Albumin/Globulin Ratio 0.6 L Crossmatch 05/07/17 05/07/17 05/08/17 15:25 20:00 02:50 WBC 18.7 H RBC 2.64 L Hgb 8.2 L 7.7 L Hct 23.8 L 22.4 L MCV 90.2 MCH 31.1 MCHC 34.5 RDW 14.2 RDW Differential 46.5 H Plt Count 123 L MPV 9.9 Immature Gran % (Auto) 0.500 Neut % (Auto) 84.4 H Lymph % (Auto) 9.2 L [place] % (Auto) 5.8 Eos % (Auto) 0.0 Baso % (Auto) 0.1 Absolute Neuts (auto) 15.8 H Absolute Lymphs (auto) 1.72 Total Counted Not Reportable Differential Comment SCANNED Diff Path Review PT INR APTT Fibrinogen Sodium 141 Potassium 4.0 Chloride 110 H Carbon Dioxide 22.0 Anion Gap 9 BUN 15 Creatinine 0.73 Estim Creat Clear Calc 98.78 Est GFR (MDRD) Af Amer 115 Est GFR (MDRD) Non-Af 95 BUN/Creatinine Ratio 20.5 H Glucose 81 Calcium 7.2 L Total Bilirubin AST ALT Alkaline Phosphatase Total Protein Albumin Globulin Albumin/Globulin Ratio Crossmatch 05/08/17 05/08/17 02:50 06:25 WBC 16.6 H RBC 2.59 L Hgb 8.2 L 8.0 L Hct 23.6 L 23.3 L MCV 90.0 MCH 30.9 MCHC 34.3 RDW 14.4 RDW Differential 47.3 H Plt Count 115 L MPV 9.9 Immature Gran % (Auto) Neut % (Auto) Lymph % (Auto) [place] % (Auto) Eos % (Auto) Baso % (Auto) Absolute Neuts (auto) Absolute Lymphs (auto) Total Counted Differential Comment Diff Path Review PT INR APTT Fibrinogen Sodium Potassium Chloride Carbon Dioxide Anion Gap BUN Creatinine Estim Creat Clear Calc Est GFR (MDRD) Af Amer Est GFR (MDRD) Non-Af BUN/Creatinine Ratio Glucose Calcium Total Bilirubin AST ALT Alkaline Phosphatase Total Protein Albumin Globulin Albumin/Globulin Ratio Crossmatch Assessment/Plan Active and Suspected Problems (Last Reviewed 05/05/17 @ 08:20 by Yael Scott) Postcesarean section (Acute) Arrest of descent, delivered, current hospitalization (Acute) Anemia due to acute blood loss (Acute) hemorrhage (Acute) atony of uterus with hemorrhage (Acute) anemia secondary to acute blood loss, hypotension, PPH due to atony, s/p 5 units PRBCs- checking Hg 1 hour post transfusion. discussed with critical care attending- will transfer to floor if Hg stable post transfusion. low suspicion for bleeding intrabdominal based on Hg stability overall, still normalizing out post severe blood loss and significant fluid imbalances. tachycardia- continue fluid resuscitation and blood products PRN, kidney function normal and beginning diuresis with increased ouptput bakri balloon out, vaginal bleeding stable- continue to monitor. post care- routine. get up in chair now planning - will pump until out of ICU
--- NOTE | 2017-05-08 13:03 | PCM.CON.CC ---
Problem List (1) Postcesarean section Status: Acute (2) Advanced maternal age (AMA) in Status: Acute Comment: negative NIPT screening (3) with history of uterine myomectomy Status: Acute Comment: operative note reviewed in past, pendunculated fibroid removed and patient cleared for vaginal delivery (4) Large for gestational age fetus affecting mother, antepartum, third trimester, single gestation Status: Chronic Comment: normal HgA1c (5) Anemia due to acute blood loss Status: Acute (6) hemorrhage Status: Acute (7) atony of uterus with hemorrhage Status: Acute Reason for Consult Date of Consultation: 05/08/17 Reason for Consultation: Acute blood loss History of Present Illness: The patient is a 37 year old F, with past medical history listed below, who presented to [facility] on 05/06/2017 secondary to active labor with a past medical history significant for large for gestational age fetus with advanced maternal age. Unfortunately, patient had an arrest of labor and had to be transitioned to . Surgical intervention proceeded, but postoperatively, patient had to be reevaluated by TEMPLATE CLERK secondary to an increase in fundal height and bedside ultrasound showing a 6 cm clot present within the uterus. Large amounts of clot were noted within the vaginal orifice. Patient was transferred to the intensive care unit for further monitoring. Overnight, patient's Bakri balloon became displaced. Patient was examined several times by TEMPLATE CLERK secondary to distention of the abdomen. A CT scan of the abdomen showed distended bowel loops with possible acute bleeding. This morning, patient was noted to be tachycardic, but normotensive. Patient had reported significant left adnexal pain and reported no passage of flatus. Patient denied any orthostatic type symptoms. Patient did have significant anasarca. No nausea or emesis was reported. Patient did not have any change in mentation. Patient did have a Almaraz catheter in place that was draining pale yellow urine. Patient reports subjective improvement in overall condition compared to previous. Throughout the day, patient has received a unit of packed red blood cells. Patient was able to make it to the chair with the assistance of one. Patient did receive a unit of packed red blood cells and some lactated Ringer secondary to continued tachycardia. No obvious bleeding has been noted from the vaginal vault, rectum or hematemesis. 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 Patient Problems: Active and Suspected Problems (Last Reviewed 05/05/17 @ 08:20 by Yael Scott) Postcesarean section (Acute) Arrest of descent, delivered, current hospitalization (Acute) Anemia due to acute blood loss (Acute) hemorrhage (Acute) atony of uterus with hemorrhage (Acute) Objective: CT scan of the abdomen was personally reviewed. Patient does appear to have a distended gallbladder and distended bowels. Could not appreciate significant bleeding is reported in the formal report. Patient did have a significantly dilated uterus with probable intrauterine hematoma. - Physical Exam General: Alert, Oriented x3, Cooperative, - - Mild conversational dyspnea. Anasarca. Appears stated age. HEENT: Atraumatic, PERRLA, EOMI, Normocephalic, - - No scleral icterus or injection noted. Oral: Moist Mucosa, No Gingival or Mucosal Lesions/ Ulcerations Neck: Supple, No Nodes, Trachea Midline, JVD, Right Lungs: No rhonchi, No wheeze, No rales, Diminished, - - Symmetric expansion. No dullness to percussion. Cardiovascular: Normal S1, Normal S2, Murmur - Grade 2 out of 6 systolic ejection murmur at the right sternal border, No rub noted, No Gallop, Tachycardic, - - Sinus tachycardia noted on telemetry Abdomen: Soft, Bowel Sounds Not Present, Distended, Tender - Left lower quadrant with some rebound tenderness. Extremities: No clubbing, No cyanosis, Capillary Refill Less than 3 Seconds, Edema - 4+ Skin: No rashes, No breakdown, Incision - Clean, dry and intact. Musculoskeletal: No Tenderness to Palpation of Joints or Extremities Lymphatic: No Cervical, Supraclavicular, or Inguinal Adenopathy Neurological: Cranial nerves II-XII grossly intact, Neuro grossly intact, Motor Exam 5/5 strength throughout Psych/Mental Status: Alert and oriented to time, place, person, mood and affect Vital Signs Temp Pulse Resp BP Pulse Ox 37.2 C 118 H 21 H 123/69 H 98 05/08/17 12:39 05/08/17 12:39 05/08/17 12:39 05/08/17 12:39 05/08/17 12:39 Oxygen Flow Rate 2 Oxygen Delivery Method Room Air Weight: 91.7 kg Body Mass Index (BMI) 30.7 Intake and Output for Last 24 Hours 05/06/17 05/07/17 05/08/17 23:59 23:59 23:59 Intake Total 1724 / 1724 8650 / 8650 5420 / 5420 Output Total 200 / 200 1850 / 1850 5070 / 5070 Balance 1524 / 1524 6800 / 6800 350 / 350 Laboratory Tests Past 24 Hrs 05/06/17 05/07/17 05/07/17 12:40 15:25 15:25 WBC RBC Hgb Hct MCV MCH MCHC RDW RDW Differential Plt Count MPV Immature Gran % (Auto) Neut % (Auto) Lymph % (Auto) [place] % (Auto) Eos % (Auto) Baso % (Auto) Absolute Neuts (auto) Absolute Lymphs (auto) Total Counted Differential Comment PT 15.3 H INR 1.3 APTT 31.5 Fibrinogen 273 Sodium 139 Potassium 4.1 Chloride 109 H Carbon Dioxide 20.0 L Anion Gap 10 BUN 16 Creatinine 0.92 Estim Creat Clear Calc 78.38 Est GFR (MDRD) Af Amer 88 Est GFR (MDRD) Non-Af 73 BUN/Creatinine Ratio 17.4 Glucose 99 Calcium 6.7 L Total Bilirubin 0.70 AST 40 H ALT 14 Alkaline Phosphatase 66 Total Protein 3.3 L Albumin 1.3 L Globulin 2.0 L Albumin/Globulin Ratio 0.6 L Crossmatch See Detail 05/07/17 05/07/17 05/08/17 15:25 20:00 02:50 WBC 18.7 H RBC 2.64 L Hgb 8.2 L 7.7 L Hct 23.8 L 22.4 L MCV 90.2 MCH 31.1 MCHC 34.5 RDW 14.2 RDW Differential 46.5 H Plt Count 123 L MPV 9.9 Immature Gran % (Auto) 0.500 Neut % (Auto) 84.4 H Lymph % (Auto) 9.2 L [place] % (Auto) 5.8 Eos % (Auto) 0.0 Baso % (Auto) 0.1 Absolute Neuts (auto) 15.8 H Absolute Lymphs (auto) 1.72 Total Counted Not Reportable Differential Comment SCANNED PT INR APTT Fibrinogen Sodium 141 Potassium 4.0 Chloride 110 H Carbon Dioxide 22.0 Anion Gap 9 BUN 15 Creatinine 0.73 Estim Creat Clear Calc 98.78 Est GFR (MDRD) Af Amer 115 Est GFR (MDRD) Non-Af 95 BUN/Creatinine Ratio 20.5 H Glucose 81 Calcium 7.2 L Total Bilirubin AST ALT Alkaline Phosphatase Total Protein Albumin Globulin Albumin/Globulin Ratio Crossmatch 05/08/17 05/08/17 02:50 06:25 WBC 16.6 H RBC 2.59 L Hgb 8.2 L 8.0 L Hct 23.6 L 23.3 L MCV 90.0 MCH 30.9 MCHC 34.3 RDW 14.4 RDW Differential 47.3 H Plt Count 115 L MPV 9.9 Immature Gran % (Auto) Neut % (Auto) Lymph % (Auto) [place] % (Auto) Eos % (Auto) Baso % (Auto) Absolute Neuts (auto) Absolute Lymphs (auto) Total Counted Differential Comment PT INR APTT Fibrinogen Sodium Potassium Chloride Carbon Dioxide Anion Gap BUN Creatinine Estim Creat Clear Calc Est GFR (MDRD) Af Amer Est GFR (MDRD) Non-Af BUN/Creatinine Ratio Glucose Calcium Total Bilirubin AST ALT Alkaline Phosphatase Total Protein Albumin Globulin Albumin/Globulin Ratio Crossmatch Clinical Impression(s) from Imaging Studies Abdomen/Pelvis CT 05/08/17 00:52 IMPRESSION: uterus with residual blood and air in the endometrial cavity and blood in the cervix. 4 cm acute hematoma in the right pelvis adjacent to the uterus. Acute blood also tracks superiorly from the pelvis into the right lower quadrant. A small amount of blood is also seen along the edge of the liver. Bilateral symmetric hydroureteronephrosis. N.B. : The above information has been verbally conveyed by Adriel Meyers MD to Yesenia Escobar, Hospital- In-Patient RN, on 05/08/2017 02:31:05 (ET). Electronically Signed: Adriel Meyers MD at 2:29 EST Tel , Service support , N.B. : The above information has been verbally conveyed by Adriel Meyers MD to Yesenia Escobar [facility]- In-Patient RN, on 05/08/2017 02:31:05 (ET). Assessment/Plan Active and Suspected Problems (Last Reviewed 05/05/17 @ 08:20 by Yael Scott) Postcesarean section (Acute) Arrest of descent, delivered, current hospitalization (Acute) Anemia due to acute blood loss (Acute) hemorrhage (Acute) atony of uterus with hemorrhage (Acute) RECOMMENDATIONS: 1. Await repeat H&H 2. Likely okay to hold IV fluids 3. P.o. diet only as tolerated 4. No active diuresis at this time 5. Walking oximetry prior to discharge 6. Electrolyte repletion as indicated IMPRESSIONS: 1. Hemorrhagic shock secondary to bleeding Patient was significant bleeding following . Multiple blood pressures below 100 systolic with a valdez of 57/20. Patient has received significant volume resuscitation along with packed red blood cells. Patient has had an approximate 5 g drop in hemoglobin. Patient does have some abdominal tenderness, but H&H appears to be stable at this time. Resuscitation is complicated by poor albumin leading to significant extravascular sequestration. Would not recommend diuretic therapy at this time as patient's renal function appears to be stable. Patient does have significant tachycardia, but this does not appear to be responding significantly to fluid resuscitation. Patient is saturating well on room air, so active diuresis would likely only lead to increased risk of renal dysfunction. Do anticipate a polyuric phase in the next 24-48 hours. When this occurs, close monitoring of potassium may be indicated as supplementation would be likely necessitated. If repeat H&H is stable, patient is likely okay to be transferred down to [facility] for further monitoring. Patient has received a total of 5 units of packed red blood cells. Calcium supplementation and FFP may be indicated if continues to have significant need for repeated blood product administration. Consider obtaining coagulation studies for consumptive coagulopathy tomorrow morning. Critical care team continue to follow until further stabilization occurs. 2. Sinus tachycardia This does not appear to be secondary to ongoing blood losses. Patient has received significant IV fluids and packed red blood cells. Likely okay to hold on continued fluid resuscitation. Aggressive pain control. Continue to monitor. 3. Acute kidney injury secondary to ATN versus postobstructive etiology Patient was significant dilation of bilateral renal pelvis by CT scan. However, urine output remains adequate at this time. Unclear if patient has an element of obstruction secondary to uterine enlargement, but renal function appears to be responding to current therapy. We will continue to monitor closely. May require repeat scanning if urine output decreases overnight. Code Visit Inpatient E&M: 27371 Init Hosp L3
--- NOTE | 2017-05-08 13:14 | CON.PCM_ITS ---
Problem List (1) Postcesarean section Status: Acute (2) Advanced maternal age (AMA) in Status: Acute Comment: negative NIPT screening (3) with history of uterine myomectomy Status: Acute Comment: operative note reviewed in past, pendunculated fibroid removed and patient cleared for vaginal delivery (4) Large for gestational age fetus affecting mother, antepartum, third trimester, single gestation Status: Chronic Comment: normal HgA1c (5) Anemia due to acute blood loss Status: Acute (6) hemorrhage Status: Acute (7) atony of uterus with hemorrhage Status: Acute Reason for Consult Date of Consultation: 05/08/17 Reason for Consultation: Acute blood loss History of Present Illness: The patient is a 37 year old F, with past medical history listed below, who presented to [facility] on 05/06/2017 secondary to active labor with a past medical history significant for large for gestational age fetus with advanced maternal age. Unfortunately, patient had an arrest of labor and had to be transitioned to . Surgical intervention proceeded, but postoperatively, patient had to be reevaluated by FINE JEWELRY SALES ASSOCIATE secondary to an increase in fundal height and bedside ultrasound showing a 6 cm clot present within the uterus. Large amounts of clot were noted within the vaginal orifice. Patient was transferred to the intensive care unit for further monitoring. Overnight, patient's Bakri balloon became displaced. Patient was examined several times by FINE JEWELRY SALES ASSOCIATE secondary to distention of the abdomen. A CT scan of the abdomen showed distended bowel loops with possible acute bleeding. This morning, patient was noted to be tachycardic, but normotensive. Patient had reported significant left adnexal pain and reported no passage of flatus. Patient denied any orthostatic type symptoms. Patient did have significant anasarca. No nausea or emesis was reported. Patient did not have any change in mentation. Patient did have a Almaraz catheter in place that was draining pale yellow urine. Patient reports subjective improvement in overall condition compared to previous. Throughout the day, patient has received a unit of packed red blood cells. Patient was able to make it to the chair with the assistance of one. Patient did receive a unit of packed red blood cells and some lactated Ringer secondary to continued tachycardia. No obvious bleeding has been noted from the vaginal vault, rectum or hematemesis. 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 Patient Problems: Active and Suspected Problems (Last Reviewed 05/05/17 @ 08:20 by Yael Scott) Postcesarean section (Acute) Arrest of descent, delivered, current hospitalization (Acute) Anemia due to acute blood loss (Acute) hemorrhage (Acute) atony of uterus with hemorrhage (Acute) Objective: CT scan of the abdomen was personally reviewed. Patient does appear to have a distended gallbladder and distended bowels. Could not appreciate significant bleeding is reported in the formal report. Patient did have a significantly dilated uterus with probable intrauterine hematoma. - Physical Exam General: Alert, Oriented x3, Cooperative, - - Mild conversational dyspnea. Anasarca. Appears stated age. HEENT: Atraumatic, PERRLA, EOMI, Normocephalic, - - No scleral icterus or injection noted. Oral: Moist Mucosa, No Gingival or Mucosal Lesions/ Ulcerations Neck: Supple, No Nodes, Trachea Midline, JVD, Right Lungs: No rhonchi, No wheeze, No rales, Diminished, - - Symmetric expansion. No dullness to percussion. Cardiovascular: Normal S1, Normal S2, Murmur - Grade 2 out of 6 systolic ejection murmur at the right sternal border, No rub noted, No Gallop, Tachycardic, - - Sinus tachycardia noted on telemetry Abdomen: Soft, Bowel Sounds Not Present, Distended, Tender - Left lower quadrant with some rebound tenderness. Extremities: No clubbing, No cyanosis, Capillary Refill Less than 3 Seconds, Edema - 4+ Skin: No rashes, No breakdown, Incision - Clean, dry and intact. Musculoskeletal: No Tenderness to Palpation of Joints or Extremities Lymphatic: No Cervical, Supraclavicular, or Inguinal Adenopathy Neurological: Cranial nerves II-XII grossly intact, Neuro grossly intact, Motor Exam 5/5 strength throughout Psych/Mental Status: Alert and oriented to time, place, person, mood and affect Vital Signs Temp Pulse Resp BP Pulse Ox 37.2 C 118 H 21 H 123/69 H 98 05/08/17 12:39 05/08/17 12:39 05/08/17 12:39 05/08/17 12:39 05/08/17 12:39 Oxygen Flow Rate 2 Oxygen Delivery Method Room Air Weight: 91.7 kg Body Mass Index (BMI) 30.7 Intake and Output for Last 24 Hours 05/06/17 05/07/17 05/08/17 23:59 23:59 23:59 Intake Total 1724 / 1724 8650 / 8650 5420 / 5420 Output Total 200 / 200 1850 / 1850 5070 / 5070 Balance 1524 / 1524 6800 / 6800 350 / 350 Laboratory Tests Past 24 Hrs 05/06/17 05/07/17 05/07/17 12:40 15:25 15:25 WBC RBC Hgb Hct MCV MCH MCHC RDW RDW Differential Plt Count MPV Immature Gran % (Auto) Neut % (Auto) Lymph % (Auto) [place] % (Auto) Eos % (Auto) Baso % (Auto) Absolute Neuts (auto) Absolute Lymphs (auto) Total Counted Differential Comment PT 15.3 H INR 1.3 APTT 31.5 Fibrinogen 273 Sodium 139 Potassium 4.1 Chloride 109 H Carbon Dioxide 20.0 L Anion Gap 10 BUN 16 Creatinine 0.92 Estim Creat Clear Calc 78.38 Est GFR (MDRD) Af Amer 88 Est GFR (MDRD) Non-Af 73 BUN/Creatinine Ratio 17.4 Glucose 99 Calcium 6.7 L Total Bilirubin 0.70 AST 40 H ALT 14 Alkaline Phosphatase 66 Total Protein 3.3 L Albumin 1.3 L Globulin 2.0 L Albumin/Globulin Ratio 0.6 L Crossmatch See Detail 05/07/17 05/07/17 05/08/17 15:25 20:00 02:50 WBC 18.7 H RBC 2.64 L Hgb 8.2 L 7.7 L Hct 23.8 L 22.4 L MCV 90.2 MCH 31.1 MCHC 34.5 RDW 14.2 RDW Differential 46.5 H Plt Count 123 L MPV 9.9 Immature Gran % (Auto) 0.500 Neut % (Auto) 84.4 H Lymph % (Auto) 9.2 L [place] % (Auto) 5.8 Eos % (Auto) 0.0 Baso % (Auto) 0.1 Absolute Neuts (auto) 15.8 H Absolute Lymphs (auto) 1.72 Total Counted Not Reportable Differential Comment SCANNED PT INR APTT Fibrinogen Sodium 141 Potassium 4.0 Chloride 110 H Carbon Dioxide 22.0 Anion Gap 9 BUN 15 Creatinine 0.73 Estim Creat Clear Calc 98.78 Est GFR (MDRD) Af Amer 115 Est GFR (MDRD) Non-Af 95 BUN/Creatinine Ratio 20.5 H Glucose 81 Calcium 7.2 L Total Bilirubin AST ALT Alkaline Phosphatase Total Protein Albumin Globulin Albumin/Globulin Ratio Crossmatch 05/08/17 05/08/17 02:50 06:25 WBC 16.6 H RBC 2.59 L Hgb 8.2 L 8.0 L Hct 23.6 L 23.3 L MCV 90.0 MCH 30.9 MCHC 34.3 RDW 14.4 RDW Differential 47.3 H Plt Count 115 L MPV 9.9 Immature Gran % (Auto) Neut % (Auto) Lymph % (Auto) [place] % (Auto) Eos % (Auto) Baso % (Auto) Absolute Neuts (auto) Absolute Lymphs (auto) Total Counted Differential Comment PT INR APTT Fibrinogen Sodium Potassium Chloride Carbon Dioxide Anion Gap BUN Creatinine Estim Creat Clear Calc Est GFR (MDRD) Af Amer Est GFR (MDRD) Non-Af BUN/Creatinine Ratio Glucose Calcium Total Bilirubin AST ALT Alkaline Phosphatase Total Protein Albumin Globulin Albumin/Globulin Ratio Crossmatch Clinical Impression(s) from Imaging Studies Abdomen/Pelvis CT 05/08/17 00:52 IMPRESSION: uterus with residual blood and air in the endometrial cavity and blood in the cervix. 4 cm acute hematoma in the right pelvis adjacent to the uterus. Acute blood also tracks superiorly from the pelvis into the right lower quadrant. A small amount of blood is also seen along the edge of the liver. Bilateral symmetric hydroureteronephrosis. N.B. : The above information has been verbally conveyed by Adriel Meyers MD to Yesenia Escobar, Hospital- In-Patient RN, on 05/08/2017 02:31:05 (ET). Electronically Signed: Adriel Meyers MD at 2:29 EST Tel , Service support , N.B. : The above information has been verbally conveyed by Adriel Meyers MD to Yesenia Escobar [facility]- In-Patient RN, on 05/08/2017 02:31:05 (ET). Assessment/Plan Active and Suspected Problems (Last Reviewed 05/05/17 @ 08:20 by Yael Scott) Postcesarean section (Acute) Arrest of descent, delivered, current hospitalization (Acute) Anemia due to acute blood loss (Acute) hemorrhage (Acute) atony of uterus with hemorrhage (Acute) RECOMMENDATIONS: 1. Await repeat H&H 2. Likely okay to hold IV fluids 3. P.o. diet only as tolerated 4. No active diuresis at this time 5. Walking oximetry prior to discharge 6. Electrolyte repletion as indicated IMPRESSIONS: 1. Hemorrhagic shock secondary to bleeding Patient was significant bleeding following . Multiple blood pressures below 100 systolic with a valdez of 57/20. Patient has received significant volume resuscitation along with packed red blood cells. Patient has had an approximate 5 g drop in hemoglobin. Patient does have some abdominal tenderness, but H&H appears to be stable at this time. Resuscitation is complicated by poor albumin leading to significant extravascular sequestration. Would not recommend diuretic therapy at this time as patient's renal function appears to be stable. Patient does have significant tachycardia , but this does not appear to be responding significantly to fluid resuscitation. Patient is saturating well on room air, so active diuresis would likely only lead to increased risk of renal dysfunction. Do anticipate a polyuric phase in the next 24-48 hours. When this occurs, close monitoring of potassium may be indicated as supplementation would be likely necessitated. If repeat H&H is stable, patient is likely okay to be transferred down to [facility] for further monitoring. Patient has received a total of 5 units of packed red blood cells. Calcium supplementation and FFP may be indicated if continues to have significant need for repeated blood product administration. Consider obtaining coagulation studies for consumptive coagulopathy tomorrow morning. Critical care team continue to follow until further stabilization occurs. 2. Sinus tachycardia This does not appear to be secondary to ongoing blood losses. Patient has received significant IV fluids and packed red blood cells. Likely okay to hold on continued fluid resuscitation. Aggressive pain control. Continue to monitor. 3. Acute kidney injury secondary to ATN versus postobstructive etiology Patient was significant dilation of bilateral renal pelvis by CT scan. However, urine output remains adequate at this time. Unclear if patient has an element of obstruction secondary to uterine enlargement, but renal function appears to be responding to current therapy. We will continue to monitor closely. May require repeat scanning if urine output decreases overnight. Code Visit Inpatient E&M: 05285 Init Hosp L3
[2017-05-08] MEDS: Prenatal Vits Tablet 1 TABLET PO (13:32)
[2017-05-08 14:52] LABS: Hematocrit 26.2 % (37-47)
--- NOTE | 2017-05-08 18:23 | VDLE_ITS ---
Reason For Study: LEG SWELLING RIGHT LEFT GSV is normal. GSV is normal. CFV is compressible, spontaneous, phasic, CFV is compressible, spontaneous, phasic, competent and demonstrates normal competent, and demonstrates normal augmentation. augmentation. FV is compressible, spontaneous, phasic, FV is compressible, spontaneous, phasic, competent and demonstrates normal competent and demonstrates normal augmentation. augmentation. POP V is compressible, spontaneous, phasic, POP V is compressible, spontaneous, phasic, competent and demonstrates normal competent and demonstrates normal augmentation. augmentation. T/P Trunk is compressible. T/P Trunk is compressible. PTV is compressible. PTV is compressible. RT PerV is compressible. LT PerV is compressible. Procedure Exam performed portable in patient room. A preliminary report was called and/or faxed to [facility] nurse. Interpretation Summary Deep veins of the lower extremities are bilaterally patent and compressible segmentally. There is no evidence of deep vein thrombosis on either side. Valvular competence appears intact within the proximal deep venous systems bilaterally. The greater saphenous veins appear bilaterally patent and compressible segmentally. Ordering Physician: Carleen Davison Performed By: Elizabeth Spann RVT
--- NOTE | 2017-05-08 18:25 | RAD_ITS ---
STUDY: X-RAY CHEST REASON FOR EXAM: Female, 37 years old. Fever. TECHNIQUE: Single AP portable upright view of the chest. COMPARISON: None. FINDINGS: The lungs are incompletely expanded. There is ill-defined density in the inferior left base that could reflect volume loss versus pneumonic infiltrate. Mild pleural thickening also suggested along the medial left base. Minimal linear subsegmental atelectasis seen in the inferior right lung base. Normal size heart. Normal mediastinum and yanely. Normal visualized pulmonary arteries. Normal visualized aortic arch and descending thoracic aorta. Normal visualized thoracic spine. Normal visualized ribs, clavicles, and shoulders. There is no demonstrated abnormality of the visualized soft tissue structures of the upper abdomen. RAD/Chest 1 View (Portable) IMPRESSION: Ill-defined inferior left base infiltrate accompanied by minor medial pleural thickening. Electronically Signed: Giancarlo Blair MD at 19:37 EST , Service support ,
--- NOTE | 2017-05-08 18:26 | SDCEKG_ITS ---
Test Reason : TACHYCARDIA Blood Pressure : / mmHG Vent. Rate : 137 BPM Atrial Rate : 137 BPM P-R Int : 124 ms QRS Dur : 086 ms QT Int : 278 ms P-R-T Axes : 054 033 033 degrees QTc Int : 419 ms Sinus tachycardia Otherwise normal ECG No previous ECGs available Confirmed by BERENICE WILLIS ([id number]), editor at large HOLLIS HARRIS ([id number] on 05/11/2017 1:59:11 PM Referred By: CORINNE Confirmed By:BERENICE WILLIS
[2017-05-08] MEDS: 0.9% Saline Lock 10 ML Syringe IV (18:45)
[2017-05-08 19:12] LABS: Bacteria 0 SEEN /hpf (None Seen); Mucous, Urine 0 SEEN /hpf (<or=2+); Squamous Epithelial Cells - UA 0 SEEN /hpf (5-10)
[2017-05-08 19:17] LABS: Hematocrit 27.1 % (37-47); Hemoglobin 9.2 g/dl (12.0-15.0)
[2017-05-08 19:28] LABS: Color, Urine Yellow (Yellow); Glucose, Dipstick Normal (Normal); Ketone-Dipstick Negative (Negative); Leukocyte Esterase-Dipstick 25 /ul (Negative); Nitrite-Dipstick Negative (Negative); Occult Blood-Urine 25 /ul (Negative); Protein-Dipstick Negative (Negative); Urine Bilirubin Dipstick Negative (Negative); Urine Clarity Clear (Clear); Urine Urobilinogen Normal (Normal)
[2017-05-08 19:56] LABS: Red Blood Cells-Urine 0-5 SEEN /hpf (0-5); White Blood Cells 0-5 SEEN /hpf (0-5)
--- NOTE | 2017-05-08 21:01 | PCM.PN.OB ---
Patient Problems: Active and Suspected Problems (Last Reviewed 05/05/17 @ 08:20 by Yael Scott) Postcesarean section (Acute) Arrest of descent, delivered, current hospitalization (Acute) Anemia due to acute blood loss (Acute) hemorrhage (Acute) atony of uterus with hemorrhage (Acute) Subjective: patient transferred to labor and delivery after stable Hg confirmed. Patient denies any CP SOB N V tolerating po, is up in a chair. has developed low grade fever. currently and diuresing well. - Physical Exam General: Alert, Oriented x3 Lungs: Normal air movement Cardiovascular: Tachycardic Vital Signs Temp Pulse Resp BP Pulse Ox 99.7 F H 142 H 18 128/56 H 97 05/08/17 18:35 05/08/17 19:05 05/08/17 19:05 05/08/17 19:05 05/08/17 19:05 Oxygen Flow Rate 2 Oxygen Delivery Method Room Air Weight: 202 lb 2.622 oz Body Mass Index (BMI) 30.7 Intake and Output for Last 24 Hours 05/06/17 05/07/17 05/08/17 23:59 23:59 23:59 Intake Total 1724 / 1724 8650 / 8650 8136 / 8136 Output Total 200 / 200 1850 / 1850 7370 / 7370 Balance 1524 / 1524 6800 / 6800 766 / 766 Laboratory Tests Past 24 Hrs 05/06/17 05/08/17 05/08/17 12:40 02:50 02:50 WBC RBC Hgb 8.2 L Hct 23.6 L MCV MCH MCHC RDW RDW Differential Plt Count MPV Sodium 141 Potassium 4.0 Chloride 110 H Carbon Dioxide 22.0 Anion Gap 9 BUN 15 Creatinine 0.73 Estim Creat Clear Calc 98.78 Est GFR (MDRD) Af Amer 115 Est GFR (MDRD) Non-Af 95 BUN/Creatinine Ratio 20.5 H Glucose 81 Calcium 7.2 L Urine Color Urine Clarity Urine pH Ur Specific [place] Urine Protein Urine Glucose (UA) Urine Ketones Urine Occult Blood Urine Nitrite Urine Bilirubin Urine Urobilinogen Ur Leukocyte Esterase Urine RBC Urine WBC Ur Squamous Epith Cells Urine Bacteria Urine Mucus Crossmatch See Detail 05/08/17 05/08/17 05/08/17 06:25 14:30 18:45 WBC 16.6 H RBC 2.59 L Hgb 8.0 L 9.0 L 9.2 L Hct 23.3 L 26.2 L 27.1 L MCV 90.0 MCH 30.9 MCHC 34.3 RDW 14.4 RDW Differential 47.3 H Plt Count 115 L MPV 9.9 Sodium Potassium Chloride Carbon Dioxide Anion Gap BUN Creatinine Estim Creat Clear Calc Est GFR (MDRD) Af Amer Est GFR (MDRD) Non-Af BUN/Creatinine Ratio Glucose Calcium Urine Color Urine Clarity Urine pH Ur Specific [place] Urine Protein Urine Glucose (UA) Urine Ketones Urine Occult Blood Urine Nitrite Urine Bilirubin Urine Urobilinogen Ur Leukocyte Esterase Urine RBC Urine WBC Ur Squamous Epith Cells Urine Bacteria Urine Mucus Crossmatch 05/08/17 18:50 WBC RBC Hgb Hct MCV MCH MCHC RDW RDW Differential Plt Count MPV Sodium Potassium Chloride Carbon Dioxide Anion Gap BUN Creatinine Estim Creat Clear Calc Est GFR (MDRD) Af Amer Est GFR (MDRD) Non-Af BUN/Creatinine Ratio Glucose Calcium Urine Color Yellow Urine Clarity Clear Urine pH 8.0 Ur Specific [place] 1.010 Urine Protein Negative Urine Glucose (UA) Normal Urine Ketones Negative Urine Occult Blood 25 H Urine Nitrite Negative Urine Bilirubin Negative Urine Urobilinogen Normal Ur Leukocyte Esterase 25 H Urine RBC 0-5 SEEN Urine WBC 0-5 SEEN Ur Squamous Epith Cells 0 SEEN Urine Bacteria 0 SEEN Urine Mucus 0 SEEN Crossmatch Assessment/Plan Active and Suspected Problems (Last Reviewed 05/05/17 @ 08:20 by Yael Scott) Postcesarean section (Acute) Arrest of descent, delivered, current hospitalization (Acute) Anemia due to acute blood loss (Acute) hemorrhage (Acute) atony of uterus with hemorrhage (Acute) anemia secondary to acute blood loss, hypotension, PPH due to atony, s/p 5 units PRBCs- Hg stable but persistent tachycardia and now low grade fever. CXR shows possible small infiltrate, discussed with ICU attending, based on al lcurrent results recommend expectant managment and echocardiogram, bilateral lower extremity dopplers in the am.
[2017-05-09] VITALS (8 sets, daily range): BP systolic 100–128; BP diastolic 50–76; PULSE 109–120; RESP 15–18; TEMP 36.8–37.7; O2SAT 93–97
[2017-05-09] MEDS: oxyCODONE 5 MG Tablet PO ×2 (02:24→21:34)
[2017-05-09] MEDS: Clindamycin 900 MG/50 ML BAG 75 MG IV ×3 (03:42→20:14)
[2017-05-09 05:47] LABS: Hematocrit 24.5 % (37-47); Hemoglobin 8.3 g/dl (12.0-15.0); Mean Corp Hgb Conc 33.9 g/gl (32-36); Mean Corpuscular Hgb 30.7 pg (27.0-32.0); Mean Corpuscular Volume 90.7 fL (81-99); Mean Platelet Vol. 9.7 fl (6.2-12.0); Platelet Count 148 K/mm3 (150-450); RBC Distribution Width CV 15.1 % (11.6-14.6); RBC Distribution Width SD 48.2 fl (35.1-43.9); White Blood Count 17.3 K/mm3 (4.4-11.0)
[2017-05-09 05:48] LABS: Scan Indicated on CBC? Y/N NO
--- NOTE | 2017-05-09 08:00 | ECHOD_ITS ---
Reason For Study: tachycardia Procedure This was a 2D Doppler, Color Flow transthoracic echocardiogram. The study was technically difficult. PT was supine for exam due to nausea and pain (S/P C section). Exam performed portable in patient room. Left Ventricle Normal LV size. Left ventricular systolic function is normal. The estimated ejection fraction is 65 %. No regional wall motion abnormalities noted. Right Ventricle Normal RV size. Normal systolic function. Atria Normal left atrium. Normal right atrium. No doppler evidence for ASD. Mitral Valve There is no mitral annular calcification. Normal mitral valve. Trivial mitral valve insufficiency. Tricuspid Valve Normal tricuspid valve. Trivial tricuspid valve insufficiency. Right ventricular systolic pressure estimated to be 26 mmHg. Aortic Valve Trisinus/trileaflet aortic valve. Normal aortic valve. Pulmonic Valve The pulmonic valve is not well visualized. Trivial pulmonic valve insufficiency. Great Vessels Normal sized aortic root. Pericardium/Pleural No pericardial effusion. MMode/2D Measurements & Calculations LVIDd: 4.6 cm IVSd: 1.1 cm Ao root diam: 2.7 cm LVIDs: 3.0 cm LVPWd: 0.97 cm LA dimension: 3.5 cm RVDd: 3.1 cm FS: 35.3 % LAV(MOD-bp): 37.1 ml LA A4 area: 14.6 cm2 RA A4 area: 15.3 cm2 LAV(MOD-bp) Indexed: 18.5 ml/m2 LAV(MOD-sp2): 36.0 ml LAV(MOD-sp4): 36.0 ml Doppler Measurements & Calculations MV E max talha: 94.4 cm/sec Lat Peak E' Talha: 12.1 cm/sec Med Peak E' Talha: 13.7 cm/sec MV A max talha: 83.0 cm/sec E/E' lat: 7.8 E/E' med: 6.9 MV E/A: 1.1 Ao V2 max: 146.8 cm/sec LV V1 max: 119.9 cm/sec PA V2 max: 139.6 cm/sec Ao max P.6 mmHg LV V1 max P.8 mmHg PI end-d talha: 114.0 cm/sec TR max talha: 238.5 cm/sec TR max P.7 mmHg Interpretation Summary Left ventricular systolic function is normal. The estimated ejection fraction is 65 %. Trivial mitral valve insufficiency. Trivial tricuspid valve insufficiency. Trivial pulmonic valve insufficiency. Right ventricular systolic pressure estimated to be 26 mmHg. Ordering Physician: Carleen Davison Referring Physician: YANA PCP Performed By: Constance Schwartz RDCS, RVT
[2017-05-09 08:51] LABS: Anion Gap 9 (5-15); BUN 7 mg/dL (7-18); BUN/Creat Ratio 13.9 RATIO (10-20); Calcium,Total 7.6 mg/dL (8.5-10.1); Chloride 108 mmol/L (98-107); EST Glomerular Filtration Rate 146 mL/min (>60); Est Glom Filt Rate - Afr Amer 177 mL/min (>60); Estimated Creatinine Clearance 144.21 ml/min; Glucose 92 mg/dL (70-110); Magnesium 1.7 mg/dL (1.6-2.6); Phosphorus 3.1 mg/dL (2.5-4.9); Potassium 3.8 mmol/L (3.5-5.1); Sodium Level 142 mmol/L (136-145)
[2017-05-09] MEDS: Ondansetron 4 MG/2 ML Vial IV (10:10)
[2017-05-09] MEDS: 0.9% Saline Lock 10 ML Syringe IV ×2 (10:11→11:56)
--- NOTE | 2017-05-09 11:11 | PN_ITS ---
Subjective: Patient transferred out of the intensive care unit yesterday. Patient persisted and tachycardia overnight and did spike a fever to 38.2?C. This morning, patient is reporting significant nausea and fatigue. Patient is also reporting right-sided abdominal pain. Patient continues to deny any flatus. at the bedside reports the patient is not very energetic and is not actively anticipating care of the baby, which he feels is out of her norm. Patient remains on room air. Patient has had lower extremity Dopplers completed, but echocardiogram has not been done. Lower extremity Dopplers were reportedly tentatively negative. General: Alert, Oriented x3, Cooperative, No apparent distress, - - Appears mildly ill HEENT: Atraumatic, PERRLA, EOMI, Normocephalic, - - No scleral icterus or injection noted. Oral: Moist Mucosa, No Gingival or Mucosal Lesions/ Ulcerations Neck: Supple, No JVD, No Nodes, Trachea Midline Lungs: No rhonchi, No wheeze, No rales, Diminished, - - Symmetric expansion. Cardiovascular: Normal S1, Normal S2, No murmurs, No rub noted, No Gallop, Tachycardic Abdomen: Soft, Hypoactive Bowel Sounds, Tender - Right adnexa pain to palpation. Positive rebound. Extremities: No clubbing, No cyanosis, Edema Skin: No rashes, No breakdown, Incision - Clean, dry and intact. Musculoskeletal: No Tenderness to Palpation of Joints or Extremities, No Muscle Wasting Lymphatic: No Cervical, Supraclavicular, or Inguinal Adenopathy Neurological: Cranial nerves II-XII grossly intact, Neuro grossly intact, Motor Exam 5/5 strength throughout Psych/Mental Status: Alert and oriented to time, place, person, mood and affect Vital Signs Temp Pulse Resp BP Pulse Ox 36.8 C 112 H 15 128/76 H 93 05/09/17 08:20 05/09/17 08:30 05/09/17 08:20 05/09/17 08:20 05/09/17 08:20 Oxygen Flow Rate 2 Oxygen Delivery Method Room Air Weight: 91.7 kg Body Mass Index (BMI) 30.7 Intake and Output for Last 24 Hours 05/07/17 05/08/17 05/09/17 23:59 23:59 23:59 Intake Total 8650 / 8650 8736 / 8736 254 / 254 Output Total 1850 / 1850 8370 / 8370 850 / 850 Balance 6800 / 6800 366 / 366 -596 / -596 Labs (Last 48 Hours) 05/06/17 05/07/17 05/07/17 12:40 10:10 10:10 WBC RBC Hgb Hct MCV MCH MCHC RDW RDW Differential Plt Count MPV Immature Gran % (Auto) Neut % (Auto) Lymph % (Auto) [place] % (Auto) Eos % (Auto) Baso % (Auto) Absolute Neuts (auto) Absolute Lymphs (auto) Total Counted Not Reportable Differential Comment Diff Path Review PT INR APTT Fibrinogen 375 Sodium Potassium Chloride Carbon Dioxide Anion Gap BUN Creatinine Estim Creat Clear Calc Est GFR (MDRD) Af Amer Est GFR (MDRD) Non-Af BUN/Creatinine Ratio Glucose Calcium Phosphorus Magnesium Total Bilirubin AST ALT Alkaline Phosphatase Total Protein Albumin Globulin Albumin/Globulin Ratio Urine Color Urine Clarity Urine pH Ur Specific [place] Urine Protein Urine Glucose (UA) Urine Ketones Urine Occult Blood Urine Nitrite Urine Bilirubin Urine Urobilinogen Ur Leukocyte Esterase Urine RBC Urine WBC Ur Squamous Epith Cells Urine Bacteria Urine Mucus Crossmatch See Detail 05/07/17 05/07/17 05/07/17 11:31 11:31 15:25 WBC 20.8 H RBC 2.84 L Hgb 8.9 L Hct 26.7 L MCV 94.0 MCH 31.3 MCHC 33.3 RDW 14.2 RDW Differential 48.6 H Plt Count 136 L MPV 9.7 Immature Gran % (Auto) 0.900 Neut % (Auto) 79.9 H Lymph % (Auto) 10.1 L [place] % (Auto) 9.1 Eos % (Auto) 0.0 Baso % (Auto) 0.0 Absolute Neuts (auto) 16.6 H Absolute Lymphs (auto) 2.10 Total Counted Not Reportable Differential Comment Diff Path Review May foll PT 15.5 H INR 1.3 APTT 31.3 Fibrinogen 250 Sodium 139 Potassium 4.1 Chloride 109 H Carbon Dioxide 20.0 L Anion Gap 10 BUN 16 Creatinine 0.92 Estim Creat Clear Calc 78.38 Est GFR (MDRD) Af Amer 88 Est GFR (MDRD) Non-Af 73 BUN/Creatinine Ratio 17.4 Glucose 99 Calcium 6.7 L Phosphorus Magnesium Total Bilirubin 0.70 AST 40 H ALT 14 Alkaline Phosphatase 66 Total Protein 3.3 L Albumin 1.3 L Globulin 2.0 L Albumin/Globulin Ratio 0.6 L Urine Color Urine Clarity Urine pH Ur Specific [place] Urine Protein Urine Glucose (UA) Urine Ketones Urine Occult Blood Urine Nitrite Urine Bilirubin Urine Urobilinogen Ur Leukocyte Esterase Urine RBC Urine WBC Ur Squamous Epith Cells Urine Bacteria Urine Mucus Crossmatch 05/07/17 05/07/17 05/07/17 15:25 15:25 20:00 WBC 18.7 H RBC 2.64 L Hgb 8.2 L 7.7 L Hct 23.8 L 22.4 L MCV 90.2 MCH 31.1 MCHC 34.5 RDW 14.2 RDW Differential 46.5 H Plt Count 123 L MPV 9.9 Immature Gran % (Auto) 0.500 Neut % (Auto) 84.4 H Lymph % (Auto) 9.2 L [place] % (Auto) 5.8 Eos % (Auto) 0.0 Baso % (Auto) 0.1 Absolute Neuts (auto) 15.8 H Absolute Lymphs (auto) 1.72 Total Counted Not Reportable Differential Comment SCANNED Diff Path Review PT 15.3 H INR 1.3 APTT 31.5 Fibrinogen 273 Sodium Potassium Chloride Carbon Dioxide Anion Gap BUN Creatinine Estim Creat Clear Calc Est GFR (MDRD) Af Amer Est GFR (MDRD) Non-Af BUN/Creatinine Ratio Glucose Calcium Phosphorus Magnesium Total Bilirubin AST ALT Alkaline Phosphatase Total Protein Albumin Globulin Albumin/Globulin Ratio Urine Color Urine Clarity Urine pH Ur Specific [place] Urine Protein Urine Glucose (UA) Urine Ketones Urine Occult Blood Urine Nitrite Urine Bilirubin Urine Urobilinogen Ur Leukocyte Esterase Urine RBC Urine WBC Ur Squamous Epith Cells Urine Bacteria Urine Mucus Crossmatch 05/08/17 05/08/17 05/08/17 02:50 02:50 06:25 WBC 16.6 H RBC 2.59 L Hgb 8.2 L 8.0 L Hct 23.6 L 23.3 L MCV 90.0 MCH 30.9 MCHC 34.3 RDW 14.4 RDW Differential 47.3 H Plt Count 115 L MPV 9.9 Immature Gran % (Auto) Neut % (Auto) Lymph % (Auto) [place] % (Auto) Eos % (Auto) Baso % (Auto) Absolute Neuts (auto) Absolute Lymphs (auto) Total Counted Differential Comment Diff Path Review PT INR APTT Fibrinogen Sodium 141 Potassium 4.0 Chloride 110 H Carbon Dioxide 22.0 Anion Gap 9 BUN 15 Creatinine 0.73 Estim Creat Clear Calc 98.78 Est GFR (MDRD) Af Amer 115 Est GFR (MDRD) Non-Af 95 BUN/Creatinine Ratio 20.5 H Glucose 81 Calcium 7.2 L Phosphorus Magnesium Total Bilirubin AST ALT Alkaline Phosphatase Total Protein Albumin Globulin Albumin/Globulin Ratio Urine Color Urine Clarity Urine pH Ur Specific [place] Urine Protein Urine Glucose (UA) Urine Ketones Urine Occult Blood Urine Nitrite Urine Bilirubin Urine Urobilinogen Ur Leukocyte Esterase Urine RBC Urine WBC Ur Squamous Epith Cells Urine Bacteria Urine Mucus Crossmatch 05/08/17 05/08/17 05/08/17 14:30 18:45 18:50 WBC RBC Hgb 9.0 L 9.2 L Hct 26.2 L 27.1 L MCV MCH MCHC RDW RDW Differential Plt Count MPV Immature Gran % (Auto) Neut % (Auto) Lymph % (Auto) [place] % (Auto) Eos % (Auto) Baso % (Auto) Absolute Neuts (auto) Absolute Lymphs (auto) Total Counted Differential Comment Diff Path Review PT INR APTT Fibrinogen Sodium Potassium Chloride Carbon Dioxide Anion Gap BUN Creatinine Estim Creat Clear Calc Est GFR (MDRD) Af Amer Est GFR (MDRD) Non-Af BUN/Creatinine Ratio Glucose Calcium Phosphorus Magnesium Total Bilirubin AST ALT Alkaline Phosphatase Total Protein Albumin Globulin Albumin/Globulin Ratio Urine Color Yellow Urine Clarity Clear Urine pH 8.0 Ur Specific [place] 1.010 Urine Protein Negative Urine Glucose (UA) Normal Urine Ketones Negative Urine Occult Blood 25 H Urine Nitrite Negative Urine Bilirubin Negative Urine Urobilinogen Normal Ur Leukocyte Esterase 25 H Urine RBC 0-5 SEEN Urine WBC 0-5 SEEN Ur Squamous Epith Cells 0 SEEN Urine Bacteria 0 SEEN Urine Mucus 0 SEEN Crossmatch 05/09/17 05/09/17 05:30 08:20 WBC 17.3 H RBC 2.70 L Hgb 8.3 L Hct 24.5 L MCV 90.7 MCH 30.7 MCHC 33.9 RDW 15.1 H RDW Differential 48.2 H Plt Count 148 L MPV 9.7 Immature Gran % (Auto) Neut % (Auto) Lymph % (Auto) [place] % (Auto) Eos % (Auto) Baso % (Auto) Absolute Neuts (auto) Absolute Lymphs (auto) Total Counted Differential Comment Diff Path Review PT INR APTT Fibrinogen Sodium 142 Potassium 3.8 Chloride 108 H Carbon Dioxide 25.0 Anion Gap 9 BUN 7 Creatinine 0.50 L Estim Creat Clear Calc 144.21 Est GFR (MDRD) Af Amer 177 Est GFR (MDRD) Non-Af 146 BUN/Creatinine Ratio 13.9 Glucose 92 Calcium 7.6 L Phosphorus 3.1 Magnesium 1.7 Total Bilirubin AST ALT Alkaline Phosphatase Total Protein Albumin Globulin Albumin/Globulin Ratio Urine Color Urine Clarity Urine pH Ur Specific [place] Urine Protein Urine Glucose (UA) Urine Ketones Urine Occult Blood Urine Nitrite Urine Bilirubin Urine Urobilinogen Ur Leukocyte Esterase Urine RBC Urine WBC Ur Squamous Epith Cells Urine Bacteria Urine Mucus Crossmatch Clinical Impression(s) from Imaging Studies Chest X-Ray 05/08/17 18:25 IMPRESSION: Ill-defined inferior left base infiltrate accompanied by minor medial pleural thickening. Electronically Signed: Giancarlo Blair MD at 19:37 EST , Service support , Assessment/Plan Active and Suspected Problems (Last Reviewed 05/05/17 @ 08:20 by Yael Scott) Postcesarean section (Acute) Arrest of descent, delivered, current hospitalization (Acute) Anemia due to acute blood loss (Acute) hemorrhage (Acute) atony of uterus with hemorrhage (Acute) RECOMMENDATIONS: 1. Repeat H&H this evening 2. Discontinue supplemental IV fluids 3. May place an NG for bowel decompression if nausea becomes severe 4. No active diuresis at this time 5. Walking oximetry prior to discharge 6. Electrolyte repletion as indicated IMPRESSIONS: 1. Hemorrhagic shock secondary to bleeding Patient was significant bleeding following . Multiple blood pressures below 100 systolic with a valdez of 57/20. Patient has received significant volume resuscitation along with packed red blood cells. Patient has had an approximate 5 g drop in hemoglobin. Abdominal pain is now in the right adnexa as opposed the left adnexa yesterday. Pain is slightly worse compared to previous. White count is up slightly and patient was placed on empiric antibiotics overnight. Consider repeating H&H this evening. If decreased, transfusion with coagulation studies would be appropriate. Cannot exclude the need for FFP given volume of blood resuscitation it patient has received. 2. Sinus tachycardia This does not appear to be secondary to ongoing blood losses. Patient did receive significant fluids overnight and may have led to a decrease in hemoglobin this morning. Lower extremity Dopplers are reportedly negative, so pulmonary embolism is unlikely. Patient does have an echocardiogram scheduled for possible cardiomyopathy of . Did discuss with cardiology personally and will also evaluate for right heart strain. Tachycardia does not appear to be fluid responsive and therefore fluid boluses can likely be discontinued. 3. Acute kidney injury secondary to ATN versus postobstructive etiology Patient was significant dilation of bilateral renal pelvis by CT scan. However, urine output remains adequate to above normal at this time. Unclear if patient had an element of obstruction secondary to uterine enlargement, but renal function appears to be responding to current therapy. We will continue to monitor closely. Urine is not consistent with infection at this time. Code Visit Inpatient E&M: 07179 Subs Hosp L3
[2017-05-09 12:56] LABS: Pathologist Review Reviewed
--- NOTE | 2017-05-09 16:00 | CASEMGMT ---
Social Work Note Labor and Delivery Unit Social Work Assessment completed. Refer to documentation below for further details. Date of Referral: 05/09/2017 Time of Referral: 0830 Referred By: Dr. Davison Reason for Referral: support related to life stressors (MOB with ICU stay post-delivery and recent of PIETERs brother) Date of Intervention: 05/09/2017 Time of Intervention: 1600 History obtained from: Medical record and patient/mother of baby (MOB) Abdon Syed Household composition: MOB, father of baby (FOB), 3 pet dogs, and then plan to take baby Benjamin Syed to this home. MOB reports home situation is safe and adequate, to [place] Patient's parent/guardian status: MOB is 37 years old. FOB 49 years old. 3 years. Benjamin is the first child for both MOB and FOB. MOB denies any form of abuse in relationship with FOB. Medical History: MOB is G1, P0 to 1 after delivering Benjamin. care started at 6 weeks gestation. MOB reports was planned and wanted, but did happen sooner than expected. Infant born via primary caesarian section via general anesthesia, with MOB having a hemorrhage after deliver. MOB with an almost 2 day ICU stay post-delivery. born weighing 8 pounds 11 ounces, with Apgars of 8 and 9. 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 MOB reports ability to read, write, and to understand what is read. 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 JOSEPH grain farms the 100 acre family farm. JOSEPH was also recently voted in as a town trustee. Infant Supplies: MOB reports to have needed infant supplies including crib, pack-n-play, car seat, clothing, diapers, wipes. Plans to breast feed if able; able to purchase formula if needed. Childcare/Caregiver(s): MOB plans to be the primary caregiver to infant, but has lined up additional help 2 time a week when MOB is ready to work again. Transportation: No issues. Programs/Agencies Involved: No agency involvement. Denies need for WIC. Children Services/Legal Issues: Not applicable Behavioral Health Issues: MBO admits to some past depression for which MOB talked with the reconciliation specialist from their anabaptism. MOB denies any history of counseling otherwise, denies any medication management for mental health, and denies any thoughts/plans/attempts of suicide. MOB denies any thoughts of harm to others. MOB denies any substance use or abuse history. No drinking during . N Family/Social Stressors: MOB is a first time parents, advanced maternal age and FOB is older than MOB. MOB report this baby was planned and wanted however. MOB reports her parents, for 37 years, are now going through a divorce so this has been a stress over the last year. FOB was voted in as town trustee, which is an added responsibility. MOBs [id number] currently in the hospital having surgery this date. MOB with a hemorrhage after delivery with significant blood loss, with impeded MOB getting to spend time with and harding with baby at the start. MOB reports to feel a harding coming with baby, and to feel a connection. MOB reports it was hard at first, as didnt feel good, but feel as if things turned the corner for the positive at around 1100 today. MOB acknowledges that hast not done much keeping track of feedings, changing diapers, or general baby car to this point, but now feels ready to take on this task. In addition hardship after delivery, MOB reports found out that MOBs half-brother, whom MOB reports was estranged with, committed suicide on 05-08-17. MOB reports still hasnt been able to process this information due trying to process what is going on with MOB and infant. Support Systems: MOB reports FOB is a great support. MOB endorses great support from the reconciliation specialist from the [facility] anabaptism. In fact, the reconciliation specialist has been to the hospital 2 times since delivery for added support. MOB reports in-laws live on the family farm, so are close by. MOBs mother lives across the road and is willing to help. MOB reports to have friends as well. Depression/Shaken Baby/Safe Sleeping: MOB educated to baby blues versus depression, as well as risk factors present for MOB. MOB listened to psychoeduation and reports that knows may need some support in the period. MOB reports did have some episodes of crying yesterday, but reports to be feeling better and hopeful at this time. MOB educated to shaken baby syndrome, what to do if feeling overwhelmed or frustrated. Introduced to what safe sleeping means. ASSESSMENT: MOB cooperative with social work visit today as evidenced by willingness to talk, and openness in what MOB has not been able to do yet for baby, as well as sharing about recent stressors in her life. MOB held good eye contact, appropriate mood, bright affect, and spontaneous conversation. MOB acknowledges she is an independent person, so it may be hard to ask for help, but at the same time knows may need to accept some support right now. MOB reports to feel she has a strong support system from family and friends. MOB reports that will continue to counselor camp with reconciliation specialist for support, and that reconciliation specialist has told MOB that if MOBs issue are ever out of pastors scope that reconciliation specialist will refer MOB on to appropriate support. MOB willing to accept some local resources in case there is need in the future. MOB expresses appreciation for social work visit and having time to talk. MOB denies any other needs or concerns at this time, as well as expressed thanks for social science professor talking with MOB this date. Interventions Educated to Help Me Grow and parents support groups in the area, provided handouts as well Provided general resources list of agencies assisting new parents Educated to depression, risks, how to care for self, discussed coping skills, and addressed local and online supports Educated to local support group for loved ones affected by suicide; provided handout about this group. PLAN: MOB and to home at time of discharge, to have help and support from family with the baby. Social work remains available for support as needed or indicated, otherwise no other services requested or indicated at this time. -EGORGE Souza, COUNTER MANAGER
[2017-05-09] MEDS: Acetaminophen 500 MG Tablet 1000 MG PO (16:24)
--- NOTE | 2017-05-09 18:10 | PCM.PN.OB ---
Patient Problems: Active and Suspected Problems (Last Reviewed 05/05/17 @ 08:20 by Yael Scott) Arrest of descent, delivered, current hospitalization (Acute) Subjective: patient seen at 7:30 am, 1 pm, and 5:15 pm- patient doing better- co bloating but passing some gas, pain controlled with minimal pain medicine- voiding, toelrating po, ambulating. no CP SOB N V. - Physical Exam General: Alert, Oriented x3 Oral: Moist Mucosa Lungs: Clear to auscultation, Normal air movement, No rhonchi, No wheeze, No rales Cardiovascular: Regular Rhythm, Tachycardic Abdomen: Soft, - - stable moderate distension, approriate TTP Incision: C/D/I Extremities: Edema Skin: No rashes Vital Signs Temp Pulse Resp BP Pulse Ox 99.8 F H 120 H 16 116/74 96 05/09/17 16:25 05/09/17 16:25 05/09/17 16:25 05/09/17 16:25 05/09/17 16:25 Oxygen Flow Rate 2 Oxygen Delivery Method Room Air Weight: 202 lb 2.622 oz Body Mass Index (BMI) 30.7 Intake and Output for Last 24 Hours 05/07/17 05/08/17 05/09/17 23:59 23:59 23:59 Intake Total 8650 / 8650 8736 / 8736 254 / 254 Output Total 1850 / 1850 8370 / 8370 2550 / 2550 Balance 6800 / 6800 366 / 366 -2296 / -2296 Laboratory Tests Past 24 Hrs 05/06/17 05/07/17 05/08/17 12:40 11:31 18:45 WBC RBC Hgb 9.2 L Hct 27.1 L MCV MCH MCHC RDW RDW Differential Plt Count MPV Diff Path Review Reviewed Sodium Potassium Chloride Carbon Dioxide Anion Gap BUN Creatinine Estim Creat Clear Calc Est GFR (MDRD) Af Amer Est GFR (MDRD) Non-Af BUN/Creatinine Ratio Glucose Calcium Phosphorus Magnesium Urine Color Urine Clarity Urine pH Ur Specific [place] Urine Protein Urine Glucose (UA) Urine Ketones Urine Occult Blood Urine Nitrite Urine Bilirubin Urine Urobilinogen Ur Leukocyte Esterase Urine RBC Urine WBC Ur Squamous Epith Cells Urine Bacteria Urine Mucus Crossmatch See Detail 01/22/18 01/23/18 01/23/18 18:50 05:30 08:20 WBC 17.3 H RBC 2.70 L Hgb 8.3 L Hct 24.5 L MCV 90.7 MCH 30.7 MCHC 33.9 RDW 15.1 H RDW Differential 48.2 H Plt Count 148 L MPV 9.7 Diff Path Review Sodium 142 Potassium 3.8 Chloride 108 H Carbon Dioxide 25.0 Anion Gap 9 BUN 7 Creatinine 0.50 L Estim Creat Clear Calc 144.21 Est GFR (MDRD) Af Amer 177 Est GFR (MDRD) Non-Af 146 BUN/Creatinine Ratio 13.9 Glucose 92 Calcium 7.6 L Phosphorus 3.1 Magnesium 1.7 Urine Color Yellow Urine Clarity Clear Urine pH 8.0 Ur Specific [place] 1.010 Urine Protein Negative Urine Glucose (UA) Normal Urine Ketones Negative Urine Occult Blood 25 H Urine Nitrite Negative Urine Bilirubin Negative Urine Urobilinogen Normal Ur Leukocyte Esterase 25 H Urine RBC 0-5 SEEN Urine WBC 0-5 SEEN Ur Squamous Epith Cells 0 SEEN Urine Bacteria 0 SEEN Urine Mucus 0 SEEN Crossmatch Assessment/Plan Active and Suspected Problems (Last Reviewed 05/05/17 @ 08:20 by Yael Scott) Arrest of descent, delivered, current hospitalization (Acute) anemia secondary to acute blood loss, hypotension, PPH due to atony, s/p 5 units PRBCs-repeat h and h at 1700 transfuse blood products PRN, patient status significantly improved. tachycardia less than last night, echocardiogram normal and dopplers of lower extremity normal. fever- empiric clindamycin and gentamicin- possible LL infiltrate but clear breath sounds, room air normal oxygenation. continue to follow, urine culture pending. possible secondary reaction to transfusions. appreciate critical care consult. negative dopplers no DVT seen. encourage ambulation, oral pain control, increase po intake, díaz out
[2017-05-09 18:13] LABS: Hematocrit 27.7 % (37-47); Hemoglobin 9.5 g/dl (12.0-15.0)
[2017-05-09] MEDS: Prenatal Vits Tablet 1 TABLET PO (21:34)
[2017-05-10 02:24] VITALS: BP 93/48; PULSE 102; RESP 16; TEMP 37.2; O2SAT 97
[2017-05-10] MEDS: Acetaminophen 500 MG Tablet 1000 MG PO ×3 (05:38→22:39)
[2017-05-10] MEDS: Clindamycin 900 MG/50 ML BAG 75 MG IV (05:39)
[2017-05-10 08:00] VITALS: BP 111/49; PULSE 90; RESP 16; TEMP 36.7
--- NOTE | 2017-05-10 11:12 | PCM.PN.INT ---
Subjective: Patient much improved compared to previous. Patient had Almaraz removed yesterday afternoon was able to ambulate to the halls. Pain is still present, but much improved compared to previous. Patient has had a bowel movement. No active bleeding has been reported. Patient's states that she is back to normal. Objective: Echocardiogram shows an EF of 65% with no regional wall motion abnormalities. No significant valvular abnormalities were appreciated. Lower extremity DVT screen was negative. General: Alert, Oriented x3, Cooperative, No apparent distress, - - Much more interactive and comfortable appearing today compared to yesterday. HEENT: Atraumatic, PERRLA, EOMI, Normocephalic, - - Speaking in full sentences. No scleral icterus or injection noted. Oral: Moist Mucosa, No Gingival or Mucosal Lesions/ Ulcerations Neck: Supple, No JVD, No Nodes, Trachea Midline Lungs: Clear to auscultation, Normal air movement, No rhonchi, No wheeze, No rales, - - Symmetric expansion. No dullness to percussion. Cardiovascular: Regular rate, Regular Rhythm, Normal S1, Normal S2, No murmurs, No rub noted, No Gallop Abdomen: Bowel Sounds Present, Soft, Passing Flatus, Distended, Tender - Improved from previous Extremities: No clubbing, No cyanosis, Capillary Refill Less than 3 Seconds, Edema - Continues to improve Skin: No rashes, No breakdown, Incision - Clean, dry and intact. Musculoskeletal: No Tenderness to Palpation of Joints or Extremities, No Muscle Wasting Lymphatic: No Cervical, Supraclavicular, or Inguinal Adenopathy Neurological: Cranial nerves II-XII grossly intact, Neuro grossly intact, Motor Exam 5/5 strength throughout Psych/Mental Status: Alert and oriented to time, place, person, mood and affect Vital Signs Temp Pulse Resp BP Pulse Ox 36.7 C 90 16 111/49 L 97 05/10/17 08:00 05/10/17 08:00 05/10/17 08:00 05/10/17 08:00 05/10/17 02:24 Oxygen Flow Rate 2 Oxygen Delivery Method Room Air Weight: 91.7 kg Body Mass Index (BMI) 30.7 Intake and Output for Last 24 Hours 05/08/17 05/09/17 05/10/17 23:59 23:59 23:59 Intake Total 8736 / 8736 254 / 254 Output Total 8370 / 8370 2550 / 2550 Balance 366 / 366 -2296 / -2296 Labs (Last 48 Hours) 05/06/17 05/07/17 05/08/17 12:40 11:31 14:30 WBC RBC Hgb 9.0 L Hct 26.2 L MCV MCH MCHC RDW RDW Differential Plt Count MPV Diff Path Review Reviewed Sodium Potassium Chloride Carbon Dioxide Anion Gap BUN Creatinine Estim Creat Clear Calc Est GFR (MDRD) Af Amer Est GFR (MDRD) Non-Af BUN/Creatinine Ratio Glucose Calcium Phosphorus Magnesium Urine Color Urine Clarity Urine pH Ur Specific [place] Urine Protein Urine Glucose (UA) Urine Ketones Urine Occult Blood Urine Nitrite Urine Bilirubin Urine Urobilinogen Ur Leukocyte Esterase Urine RBC Urine WBC Ur Squamous Epith Cells Urine Bacteria Urine Mucus Crossmatch See Detail 05/08/17 05/08/17 05/09/17 18:45 18:50 05:30 WBC 17.3 H RBC 2.70 L Hgb 9.2 L 8.3 L Hct 27.1 L 24.5 L MCV 90.7 MCH 30.7 MCHC 33.9 RDW 15.1 H RDW Differential 48.2 H Plt Count 148 L MPV 9.7 Diff Path Review Sodium Potassium Chloride Carbon Dioxide Anion Gap BUN Creatinine Estim Creat Clear Calc Est GFR (MDRD) Af Amer Est GFR (MDRD) Non-Af BUN/Creatinine Ratio Glucose Calcium Phosphorus Magnesium Urine Color Yellow Urine Clarity Clear Urine pH 8.0 Ur Specific [place] 1.010 Urine Protein Negative Urine Glucose (UA) Normal Urine Ketones Negative Urine Occult Blood 25 H Urine Nitrite Negative Urine Bilirubin Negative Urine Urobilinogen Normal Ur Leukocyte Esterase 25 H Urine RBC 0-5 SEEN Urine WBC 0-5 SEEN Ur Squamous Epith Cells 0 SEEN Urine Bacteria 0 SEEN Urine Mucus 0 SEEN Crossmatch 05/09/17 05/09/17 08:20 17:55 WBC RBC Hgb 9.5 L Hct 27.7 L MCV MCH MCHC RDW RDW Differential Plt Count MPV Diff Path Review Sodium 142 Potassium 3.8 Chloride 108 H Carbon Dioxide 25.0 Anion Gap 9 BUN 7 Creatinine 0.50 L Estim Creat Clear Calc 144.21 Est GFR (MDRD) Af Amer 177 Est GFR (MDRD) Non-Af 146 BUN/Creatinine Ratio 13.9 Glucose 92 Calcium 7.6 L Phosphorus 3.1 Magnesium 1.7 Urine Color Urine Clarity Urine pH Ur Specific [place] Urine Protein Urine Glucose (UA) Urine Ketones Urine Occult Blood Urine Nitrite Urine Bilirubin Urine Urobilinogen Ur Leukocyte Esterase Urine RBC Urine WBC Ur Squamous Epith Cells Urine Bacteria Urine Mucus Crossmatch Assessment/Plan Active and Suspected Problems (Last Reviewed 05/05/17 @ 08:20 by Yael Scott) Arrest of descent, delivered, current hospitalization (Acute) RECOMMENDATIONS: 1. Continue incentive spirometer and ambulation as tolerated 2. Defer to OB on duration of antibiotics 3. Walking oximetry prior to discharge 4. Will sign off from a critical care perspective IMPRESSIONS: 1. Hemorrhagic shock secondary to bleeding Patient was significant bleeding following . Multiple blood pressures below 100 systolic with a valdez of 57/20. Patient has received significant volume resuscitation along with packed red blood cells. Patient has had an approximate 5 g drop in hemoglobin. Patient's H&H has remained stable. No clinical bleeding has been noted. Blood pressures have remained adequate. 2. Sinus tachycardia Patient's sinus tachycardia is much improved compared to yesterday. Patient is more interactive. Echocardiogram did not show a dilated cardiomyopathy of . Lower extremity Dopplers were negative. Clinical suspicion for pulmonary embolism is low at this time. Would not recommend obtaining a CT scan for PE. Will defer to OB, but likely okay to discontinue antibiotics from my perspective. 3. Acute kidney injury secondary to ATN versus postobstructive etiology Patient was significant dilation of bilateral renal pelvis by CT scan. However, urine output remains adequate to above normal at this time. Unclear if patient had an element of obstruction secondary to uterine enlargement, but renal function appears to be responding to current therapy. Patient has had her Almaraz removed and is tolerating this well. No incontinence or dysuria has been reported. Code Visit Inpatient E&M: 74677 Subs Hosp L2
[2017-05-10] MEDS: Prenatal Vits Tablet 1 TABLET PO (13:10)
--- NOTE | 2017-05-10 14:09 | NURSING ---
1400 pt in shower
[2017-05-10] MEDS: 0.9% Saline Lock 10 ML Syringe IV (14:26)
[2017-05-10 14:36] VITALS: BP 116/46; PULSE 101; RESP 17; TEMP 37.2
--- NOTE | 2017-05-10 15:33 | NURSING ---
abdomen remains soft, but distended. tender to palpation
[2017-05-10] MEDS: oxyCODONE 5 MG Tablet PO (18:00)
--- NOTE | 2017-05-10 18:44 | PCM.PN.OB ---
Patient Problems: Active and Suspected Problems (Last Reviewed 05/05/17 @ 08:20 by Yael Scott) Arrest of descent, delivered, current hospitalization (Acute) Subjective: patient seen at 7:30 am and 2:00 pm- doing well no CP SOB N V ambulating voiding had bowel movment, no fevers and latching some with nursing. - Physical Exam General: Alert, Oriented x3 Oral: Moist Mucosa Lungs: Normal air movement Cardiovascular: Regular rate Abdomen: Soft, - - appropriate TTP Skin: No rashes Vital Signs Temp Pulse Resp BP Pulse Ox 98.9 F 101 H 17 116/46 L 97 05/10/17 14:36 05/10/17 14:36 05/10/17 14:36 05/10/17 14:36 05/10/17 02:24 Oxygen Flow Rate 2 Oxygen Delivery Method Room Air Weight: 202 lb 2.622 oz Body Mass Index (BMI) 30.7 Intake and Output for Last 24 Hours 05/08/17 05/09/17 05/10/17 23:59 23:59 23:59 Intake Total 8736 / 8736 254 / 254 Output Total 8370 / 8370 2550 / 2550 Balance 366 / 366 -2296 / -2296 Assessment/Plan Active and Suspected Problems (Last Reviewed 05/05/17 @ 08:20 by Yael Scott) Arrest of descent, delivered, current hospitalization (Acute) anemia secondary to acute blood loss, hypotension, PPH due to atony, s/p 5 units PRBCs- patient status significantly improved. tachycardia improved and stable, echocardiogram normal and dopplers of lower extremity normal. discontinue antibiotics and expectant management appreciate critical care consult.
[2017-05-10 21:26] VITALS: BP 119/65; PULSE 110; RESP 18; TEMP 36.4; O2SAT 98
[2017-05-11 02:52] VITALS: BP 100/54; PULSE 90; RESP 16; TEMP 36.9; O2SAT 99
[2017-05-11] MEDS: oxyCODONE 5 MG Tablet PO (03:09)
[2017-05-11] MEDS: Acetaminophen 500 MG Tablet 1000 MG PO ×2 (06:42→13:17)
[2017-05-11 08:52] VITALS: BP 118/68; PULSE 97; RESP 16; TEMP 36.9; O2SAT 99
--- NOTE | 2017-05-11 09:45 | NURSING ---
Addendum entered by Jesi Sanchez 05/11/17 09:46: Helped the student chart the vs and assessment. Report given to annalee KANG regarding completed assessment and vs. Annalee aware that pt has a skin rash on her back and abd. also aware of pt's tender abd Original Note: Completed the vs abd assessment with student nurse BRANDAN. Helped the student chart the VS and
[2017-05-11] MEDS: Prenatal Vits Tablet 1 TABLET PO (13:17)
[2017-05-11 13:31] VITALS: BP 122/60; PULSE 112; RESP 16; TEMP 37.3; O2SAT 98
--- NOTE | 2017-05-11 13:58 | DCINST_ITS ---
Discharge Diet: No Restrictions Discharge Activity: May Not Drive - for 2 weeks, May not drive while taking narcotic pain medications., May Shower, May Take a Tub Bath - in 7 days May resume sexual activity in: 4-6 weeks Lifting Restrictions: 20 pounds Additional Activity Instructions:: Nothing in the vagina for 4-6 weeks. You may return to work/school in 6 weeks. Call your doctor if your incision/area has: Continuous Slow Oozing, Sudden Increased Bleeding, Increased Pain/ Swelling, Increased Redness, Foul Smelling Discharge Call your doctor if you observe: Fever of 101 or Higher, Using more than one pad per hour - for 2 hours Suture Line Care: Avoid Pulling/Pushing, Avoid Pinching/Bending Cleanse incision/area with: Keep Dressing Clean & Dry Additional Instructions: If you experience any of the following, contact your healthcare provider. * Bleeding that soaks a pad every hour for 2 hours * Fever 100.4 or higher * Unrelieved incision or abdominal pain * Swelling, redness, discharge or bleeding from your incision or episiotomy site * Your incision begins to separate * Problems urinating (including inability to urinate or burning while urinating) . * Visual changes * Severe headache * Flu-like symptoms * Pain or redness in one of both of your breasts * Pain, warmth, tenderness or swelling in your legs, especially the calf area * Frequent nausea and vomiting * Symptoms of depression or anxiety If you experience any of the following, call 911 or go to the nearest Emergency Room. * Chest pain * Problems breathing * Seizure activity * Partial or complete paralysis of a body part, slurred speech, weakness or drooping of the face, or a sudden inability to walk or hold your balance Allergies/Adverse Reactions: Allergies penicillin G Allergy (Mild, Verified 05/06/17 12:02) Unknown Medications to take at Discharge ceramides 1,3,6-11 topical cream 1 applic TOPICAL DAILY 03/28/17 vitamin,calcium,grizwoni-heyx-dclat acid tablet 1 tab PO QDAY 03/28/17 Naproxen [Naprosyn] 250 - 500 mg PO Q8H PRN PRN #30 tab 05/11/17 Oxycodone HCl/Acetaminophen [Percocet 5-325] 2 tablet PO Q4H PRN PRN #28 tablet 05/11/17 The following prescriptions were given: Oxycodone HCl/Acetaminophen [Percocet 5-325] 2 tablet PO Q4H PRN PRN #28 tablet PRN Reason: Moderate-Severe pain Naproxen [Naprosyn] 250 - 500 mg PO Q8H PRN PRN #30 tab PRN Reason: MILD PAIN Follow-Up: Call to make an appointment with your doctor for an incision check in 1-2 weeks. You will also need a 6 week post- follow up appointment. Please Follow Up With: Carleen Davison MD - Call to make an appointment for an incision check in 1-2 [phone] When: You will need a post- check in 6 weeks. Primary Care Physician: Care Physician,No Primary [Primary Care Provider] -
--- NOTE | 2017-05-15 21:15 | PCM.DC.BLA ---
Discharge Summary Date of Admission: 05/06/17 Date of Discharge: 05/11/17 Summary: Discharge diagnosis: Status post see problem list Procedure: Low transverse and [facility] Hospital course: 37 yo @ 40 weeks presented IAL proceeded to complete dilation and pushed 4 hours with arrest of descent. Decision was made for a primary transverse . Patient underwent a low transverse and she developed a hemorrhage and underwent a pelvic exam under anesthesia and had abakri balloon placed. she developed severe anemia secondary to blood loss and received 5 units of PRBCs and was followed in the ICU overnight. she had a ct scan of the abdomen and pelvis done for increased bloating and it was negative. She eventually had a return of bowel and bladder function, patient was ambulating well tolerating p.o. and had adequate pain control with oral medications and was stable for discharge to home. Disposition destination: Stable to home Discharge medications: Percocet Discharge instructions: Routine post instructions Discharge diet: Regular Activity instructions: See routine post instructions
--- NOTE | 2017-05-15 21:22 | DS.PCM_ITS ---
Discharge Summary Date of Admission: 05/06/17 Date of Discharge: 05/11/17 Summary: Discharge diagnosis: Status post see problem list Procedure: Low transverse and [facility] Hospital course: 37 yo @ 40 weeks presented IAL proceeded to complete dilation and pushed 4 hours with arrest of descent. Decision was made for a primary transverse . Patient underwent a low transverse and she developed a hemorrhage and underwent a pelvic exam under anesthesia and had abakri balloon placed. she developed severe anemia secondary to blood loss and received 5 units of PRBCs and was followed in the ICU overnight. she had a ct scan of the abdomen and pelvis done for increased bloating and it was negative. She eventually had a return of bowel and bladder function, patient was ambulating well tolerating p.o. and had adequate pain control with oral medications and was stable for discharge to home. Disposition destination: Stable to home Discharge medications: Percocet Discharge instructions: Routine post instructions Discharge diet: Regular Activity instructions: See routine post instructions
== END 2017-05-11 17:00 | disposition home or self-care (01) | DRG 765 ==
LOC: WPOUT 12:28 → WP 05-07 12:16 → ICU 05-07 12:31 → WP 05-09 10:26
PROVIDERS: Internal Medicine Critical Care Medicine; Admitting Provider Obstetrics & Gynecology; Visit Provider Obstetrics & Gynecology
DX: O62.1 Secondary uterine inertia (principal); O90.4 Postpartum acute kidney failure; O75.1 Shock during or following labor and delivery; N17.0 Acute kidney failure with tubular necrosis; O72.1 Other immediate postpartum hemorrhage; D62 Acute posthemorrhagic anemia; O86.4 Pyrexia of unknown origin following delivery; O99.43 Diseases of the circulatory system complicating the puerperium; O71.7 Obstetric hematoma of pelvis; O26.53 Maternal hypotension syndrome, third trimester; O36.63X0 Maternal care for excessive fetal growth, third trimester, not applicable or unspecified; O99.824 Streptococcus B carrier state complicating childbirth; O34.29 Maternal care due to uterine scar from other previous surgery; O90.81 Anemia of the puerperium; O99.89 Other specified diseases and conditions complicating pregnancy, childbirth and the puerperium; R14.0 Abdominal distension (gaseous); R00.0 Tachycardia, unspecified; Z37.0 Single live birth; Z3A.40 40 weeks gestation of pregnancy; O71.82 Other specified trauma to perineum and vulva
CPT/HCPCS: 59050; 71045; 74176; 76815; 80048; 80053; 81001; 83735; 84100; 85014; 85018; 85025; 85027; 85384; 85610; 85730; 86644; 86850; 86900; 86920; 87086; 93005; 93306; 93970; 99218; J7030; J7040; J7120; P9016; A4216; G0378; J2405; J3490